=== PATIENT | female | born 1965 | race Caucasian/White ===

== ENCOUNTER 2019-04-18 12:48 | Inpatient (IN) | payer BC ==
[~2019-04-18] VITALS: Ht 170.2 cm; Wt 108.2 kg
[2019-04-18] MEDS ORDERED: MORPHINE SULFATE 10 MG/ML VIAL. IV ONE (13:00)
[2019-04-18] MEDS ORDERED: ONDANSETRON PF 4 MG/2 ML VIAL. IV ONE (13:00)
[2019-04-18] MEDS ORDERED: IV NORMAL SALINE 1000ML BAG 1,000 ML IV ONE ×3 (13:00→16:30)
--- NOTE | 2019-04-18 13:04 | PHYS DOC ---
Past Medical History Past Medical History: Hypertension, Hypothyroid Past Surgical History: No Surgical History Alcohol Use: Rarely Drug Use: None Adult General Chief Complaint Chief Complaint: ABDOMINAL PAIN HPI HPI Patient is a 53 year old female with history of hypertension, hypothyroidism, who presents to the ED today complaining of mild intermittent right lower quadrant abdominal pain that has been going on since yesterday. Patient denies anything specifically exacerbating or relieving the pain but states it's worse when she pushes on the right lower quadrant. Denies any nausea/ vomiting. She states she went to urgent care and assuming she has a UTI but she was sent to the ED for appendicitis rule out because of her symptoms. Review of Systems Review of Systems Constitutional: Denies fever or chills [] Eyes: Denies change in visual acuity, redness, or eye pain [] HENT: Denies nasal congestion or sore throat [] Respiratory: Denies cough or shortness of breath [] Cardiovascular: No additional information not addressed in HPI [] GI: Reports right low quadrant abdominal pain, denies nausea, vomiting, bloody stools or diarrhea [] : Denies dysuria or hematuria [] Musculoskeletal: Denies back pain or joint pain [] Integument: Denies rash or skin lesions [] Neurologic: Denies headache, focal weakness or sensory changes [] All other systems were reviewed and found to be within normal limits, except as documented in this note. Current Medications Current Medications Current Medications Medications (Trade) Dose Ordered Sig/Janina Start Time Stop Time Status Last Admin Dose Admin Ciprofloxacin/ Dextrose 200 ml @ 200 mls/hr 1X ONCE 04/18/19 16:30 04/18/19 17:29 UNV Info (CONTRAST GIVEN -- Rx MONITORING) 1 each PRN DAILY PRN 04/18/19 14:00 04/20/19 13:59 Iohexol (Omnipaque 350 Mg/ml) 60 ml 1X ONCE 04/18/19 14:00 04/18/19 14:01 DC 04/18/19 14:13 60 ML Metronidazole 100 ml @ 100 mls/hr Q8HRS 04/18/19 22:00 UNV Morphine Sulfate (Morphine Sulfate) 4 mg PRN Q2HR PRN 04/18/19 16:30 04/19/19 16:29 UNV Ondansetron HCl (Zofran) 4 mg PRN Q8HRS PRN 04/18/19 16:30 04/19/19 16:29 UNV Sodium Chloride 1,000 ml @ 125 mls/hr 1X ONCE 04/18/19 16:30 04/19/19 00:29 UNV Allergies Allergies Allergies Coded Allergies Type Severity Reaction Last Updated Verified Sulfa (Sulfonamide Antibiotics) Allergy Intermediate hives 07/25/14 Yes Physical Exam Physical Exam Constitutional: Well developed, well nourished, no acute distress, non-toxic appearance. [] HENT: Normocephalic, atraumatic, bilateral external ears normal, oropharynx moist, no oral exudates, nose normal. [] Eyes: PERRLA, EOMI, conjunctiva normal, no discharge. [] Neck: Normal range of motion, no tenderness, supple, no stridor. [] Cardiovascular:Heart rate regular rhythm, no murmur [] Lungs & Thorax: Bilateral breath sounds clear to auscultation [] Abdomen: Bowel sounds normal, soft, no left upper quadrant or right upper quadrant tenderness, negative Do sign, mild tenderness on palpation of the right lower quadrant with positive psoas sign, positive obturator sign, positive Rovsing sign, patient is guarding the right lower quadrant, no masses, no pulsatile masses. [] Skin: Warm, dry, no erythema, no rash. [] Back: No tenderness, no CVA tenderness. [] Extremities: No tenderness, no cyanosis, no clubbing, ROM intact, no edema. [] Neurologic: Alert and oriented X 3, normal motor function, normal sensory function, no focal deficits noted. [] Psychologic: Affect normal, judgement normal, mood normal. [] Current Patient Data Vital Signs Vital Signs Date Time Temp Pulse Resp B/P (MAP) Pulse Ox O2 Delivery O2 Flow Rate FiO2 04/18/19 13:45 16 04/18/19 12:50 99.2 79 175/82 (113) 99 Room Air 99.2 Lab Values Laboratory Tests Test 04/18/19 13:14 04/18/19 13:25 Urine Collection Type Unknown Urine Color Yellow Urine Clarity Clear Urine pH 7.0 Urine Specific [place] <=1.005 Urine Protein Negative mg/dL (NEG-TRACE) Urine Glucose (UA) Negative mg/dL (NEG) Urine Ketones (Stick) Negative mg/dL (NEG) Urine Blood Negative (NEG) Urine Nitrite Negative (NEG) Urine Bilirubin Negative (NEG) Urine Urobilinogen Dipstick 0.2 mg/dL (0.2 mg/dL) Urine Leukocyte Esterase Negative (NEG) Urine RBC 0 /HPF (0-2) Urine WBC 0 /HPF (0-4) Urine Squamous Epithelial Cells Few /LPF Urine Bacteria Few /HPF (0-FEW) Urine Opiates Screen Neg (NEG) Urine Methadone Screen Neg (NEG) Urine Barbiturates Neg (NEG) Urine Phencyclidine Screen Neg (NEG) Urine Amphetamine/Methamphetamine Neg (NEG) Urine Benzodiazepines Screen Neg (NEG) Urine Cocaine Screen Neg (NEG) Urine Cannabinoids Screen Neg (NEG) Urine Ethyl Alcohol Neg (NEG) White Blood Count 13.3 x10^3/uL (4.0-11.0) H Red Blood Count 4.53 x10^6/uL (3.50-5.40) Hemoglobin 13.9 g/dL (12.0-15.5) Hematocrit 41.4 % (36.0-47.0) Mean Corpuscular Volume 91 fL (79-100) Mean Corpuscular Hemoglobin 31 pg (25-35) Mean Corpuscular Hemoglobin Concent 34 g/dL (31-37) Red Cell Distribution Width 12.2 % (11.5-14.5) Platelet Count 198 x10^3/uL (140-400) Neutrophils (%) (Auto) 78 % (31-73) H Lymphocytes (%) (Auto) 16 % (24-48) L Monocytes (%) (Auto) 5 % (0-9) Eosinophils (%) (Auto) 1 % (0-3) Basophils (%) (Auto) 0 % (0-3) Neutrophils # (Auto) 10.3 x10^3uL (1.8-7.7) H Lymphocytes # (Auto) 2.1 x10^3/uL (1.0-4.8) Monocytes # (Auto) 0.7 x10^3/uL (0.0-1.1) Eosinophils # (Auto) 0.2 x10^3/uL (0.0-0.7) Basophils # (Auto) 0.0 x10^3/uL (0.0-0.2) Sodium Level 135 mmol/L (136-145) L Potassium Level 3.4 mmol/L (3.5-5.1) L Chloride Level 99 mmol/L (98-107) Carbon Dioxide Level 28 mmol/L (21-32) Anion Gap 8 (6-14) Blood Urea Nitrogen 14 mg/dL (7-20) Creatinine 1.0 mg/dL (0.6-1.0) Estimated GFR (Cockcroft-Gault) 58.2 BUN/Creatinine Ratio 14 (6-20) Glucose Level 99 mg/dL (70-99) Lactic Acid Level 0.6 mmol/L (0.4-2.0) Calcium Level 8.9 mg/dL (8.5-10.1) Total Bilirubin 1.8 mg/dL (0.2-1.0) H Aspartate Amino Transferase (AST) 15 U/L (15-37) Alanine Aminotransferase (ALT) 28 U/L (14-59) Alkaline Phosphatase 74 U/L (46-116) Total Protein 7.5 g/dL (6.4-8.2) Albumin 3.7 g/dL (3.4-5.0) Albumin/Globulin Ratio 1.0 (1.0-1.7) Lipase 82 U/L (73-393) Ethyl Alcohol Level < 10 mg/dL (0-10) Laboratory Tests 04/18/19 13:25 Laboratory Tests 04/18/19 13:25 EKG EKG [] Radiology/Procedures Radiology/Procedures []PROCEDURE: CT ABD PELV W/ IV CONTRST ONLY Examination: CT of the abdomen pelvis with IV contrast HISTORY: History of right lower quadrant abdominal pain COMPARISON: None available TECHNIQUE: Axial CT images of the abdomen pelvis were performed. Coronal and sagittal reformats are performed Exposure: One or more of the following individualized dose reduction techniques were utilized for this examination: 1. Automated exposure control 2. Adjustment of the mA and/or kV according to patient size 3. Use of iterative reconstruction technique FINDINGS: Minimal bibasilar lung atelectasis. No evidence of free air identified in the abdomen. Mild degree attenuation noted in the liver likely hepatic steatosis. The visualized spleen, adrenals grossly appears unremarkable. Gallbladder is mildly distended. The stomach is mildly distended. The visualized pancreas grossly appears unremarkable. The gallbladder is mildly distended. The small bowel is nondilated. The appendix measures 9 mm in transverse dimension however no obvious inflammatory fashioning identified about the appendix. Feces and gas noted in the colon. Sigmoid colon diverticulosis identified. There is mild fat stranding identified in the right pelvis region just superior and posterior to the urinary bladder with mild thickened appearance of the wall of the sigmoid colon distally could be diverticulitis. Urinary bladder is mildly distended. Lobulated appearance of the right kidney could be prior cortical scarring changes. No evidence of lytic bony destructive lesion. IMPRESSION: 1. Mild fat stranding identified in the right lower pelvis region about the distal sigmoid colon region with mild thickening of the wall of the sigmoid colon. Differential includes mild acute diverticulitis, underlying mucosal pathology such as neoplasm is not completely excluded. 2. The appendix measures 9 mm in transverse dimension which is mildly dilated however no obvious inflammatory fat stranding identified about the appendix. Correlate clinically. Electronically signed by: Luis Hanley MD (04/18/2019 2:28 PM) [facility] DICTATED and SIGNED BY: LUIS HANLEY MD DATE: 04/18/19 1428 Course & Med Decision Making Course & Med Decision Making Pertinent Labs and Imaging studies reviewed. (See chart for details) This is a 53-year-old female patient presenting to the ED today with right lower quadrant abdominal pain/appendicitis rule out. He has been CBC with a WBC of 13.4 and a left shift, CMP with bilirubin of 1.8. Lactic 0.6. Vitals on arrival to the ED temperature 99.2, heart rate 79, respirations 16, blood pressure 175/82, O2 sats 99% on room air. CT of the abdomen and pelvic was noted for possible diverticulitis and enlarged appendix no inflammation. Spoke to Dr. Herrmann who requested we admit patient under [facility] Spoke with Dr. Mazariegos who accepted patient for admission. Patient was started on Cipro and Flagyl as well as IV fluids. Dragon Disclaimer Dragon Disclaimer This electronic medical record was generated, in whole or in part, using a voice recognition dictation system. Departure Departure Impression: Primary Impression: Diverticulitis Additional Impression: Right lower quadrant pain Disposition: 09 ADMITTED INPATIENT Condition: STABLE Referrals: EARL LARIOS MD (PCP) Problem Qualifiers MEKHI VALLE APRN April 18, 2019 13:04
[2019-04-18 13:29] LABS: BILIRUBIN,URINE NEGATIVE (NEG); CLARITY,URINE CLEAR; COLOR,URINE YELLOW; NITRITE,URINE NEGATIVE (NEG); PROTEIN,URINE NEGATIVE (NEG-TRACE); UROBILINOGEN,URINE 0.2 mg/dL (0.2 mg/dL)
[2019-04-18 13:37] LABS: AMPHETAMINE/METHAMPHETAMINE NEG (NEG); BARBITURATES NEG (NEG); BENZODIAZEPINES NEG (NEG); CANNABINOIDS NEG (NEG); COCAINE NEG (NEG); METHADONE NEG (NEG); OPIATES NEG (NEG); PHENCYCLIDINE NEG (NEG)
[2019-04-18 13:43] LABS: BASO % 0 % (0-3); EOS # 0.2 x10^3/uL (0.0-0.7); EOS % 1 % (0-3); HEMATOCRIT 41.4 % (36.0-47.0); HEMOGLOBIN 13.9 g/dL (12.0-15.5); LYMPH # 2.1 x10^3/uL (1.0-4.8); LYMPH % 16 % (24-48); MEAN CORPUSCULAR HEMOGLOBIN 31 pg (25-35); MEAN CORPUSCULAR HGB CONC 34 g/dL (31-37); MEAN CORPUSCULAR VOLUME 91 fL (79-100); MONO # 0.7 x10^3/uL (0.0-1.1); MONO % 5 % (0-9); NEUT # 10.3 x10^3uL (1.8-7.7); NEUT % 78 % (31-73); PLATELET COUNT 198 x10^3/uL (140-400); RED BLOOD COUNT 4.53 x10^6/uL (3.50-5.40); RED CELL DISTRIBUTION WIDTH 12.2 % (11.5-14.5); WHITE BLOOD COUNT 13.3 x10^3/uL (4.0-11.0)
[2019-04-18 13:48] LABS: BACTERIA,URINE FEW /HPF (0-FEW); RBC,URINE 0 /HPF (0-2); SQUAMOUS EPITHELIAL CELL,UR FEW /LPF; WBC,URINE 0 /HPF (0-4)
[2019-04-18 13:49] LABS: CALCIUM 8.9 mg/dL (8.5-10.1); GFR 58.2; POTASSIUM 3.4 mmol/L (3.5-5.1)
[2019-04-18 13:55] LABS: ALBUMIN 3.7 g/dL (3.4-5.0); TOTAL BILIRUBIN 1.8 mg/dL (0.2-1.0); TOTAL PROTEIN 7.5 g/dL (6.4-8.2)
[2019-04-18] MEDS ORDERED: CONTRAST GIVEN. MC PRN (14:00)
[2019-04-18] MEDS ORDERED: IOHEXOL 350 MG/ML 100 ML VIAL. IV ONE (14:00)
--- NOTE | 2019-04-18 14:31 | RAD ---
Examination: CT of the abdomen pelvis with IV contrast HISTORY: History of right lower quadrant abdominal pain COMPARISON: None available TECHNIQUE: Axial CT images of the abdomen pelvis were performed. Coronal and sagittal reformats are performed Exposure: One or more of the following individualized dose reduction techniques were utilized for this examination: 1. Automated exposure control 2. Adjustment of the mA and/or kV according to patient size 3. Use of iterative reconstruction technique FINDINGS: Minimal bibasilar lung atelectasis. No evidence of free air identified in the abdomen. Mild degree attenuation noted in the liver likely hepatic steatosis. The visualized spleen, adrenals grossly appears unremarkable. Gallbladder is mildly distended. The stomach is mildly distended. The visualized pancreas grossly appears unremarkable. The gallbladder is mildly distended. The small bowel is nondilated. The appendix measures 9 mm in transverse dimension however no obvious inflammatory fashioning identified about the appendix. Feces and gas noted in the colon. Sigmoid colon diverticulosis identified. There is mild fat stranding identified in the right pelvis region just superior and posterior to the urinary bladder with mild thickened appearance of the wall of the sigmoid colon distally could be diverticulitis. Urinary bladder is mildly distended. Lobulated appearance of the right kidney could be prior cortical scarring changes. No evidence of lytic bony destructive lesion. IMPRESSION: 1. Mild fat stranding identified in the right lower pelvis region about the distal sigmoid colon region with mild thickening of the wall of the sigmoid colon. Differential includes mild acute diverticulitis, underlying mucosal pathology such as neoplasm is not completely excluded. 2. The appendix measures 9 mm in transverse dimension which is mildly dilated however no obvious inflammatory fat stranding identified about the appendix. Correlate clinically. Electronically signed by: Luis Hanley MD (04/18/2019 2:28 PM) [facility]
--- NOTE | 2019-04-18 16:24 | PDOC1 ---
History and Physical Date of Admission Date of Admission DATE: 04/18/19 TIME: 16:20 Identification/Chief Complaint Chief Complaint seen in er, presents to the ED today complaining of mild intermittent right lower quadrant abdominal pain that has been going on since yesterday. Patient denies anything specifically exacerbating or relieving the pain but states it's worse when she pushes on the right lower quadrant. Denies any nausea/ vomiting. She states she went to urgent care and assuming she has a UTI but she was sent to the ED for appendicitis ct suggests diverticulitis, possible enlarged appendix pain began yesterday morning Past Medical History Past Medical History Past Medical History Past Medical History Past Medical History: Hypertension, Hypothyroid Past Surgical History: No Surgical History Alcohol Use: Rarely Drug Use: None family hx obesity Past Surgical History Past Surgical History: Cholecystectomy Family History Family History: High Cholestrol, Hypertension Social History Smoke: No ALCOHOL: social Drugs: None Current Medications Current Medications Current Medications Sodium Chloride 1,000 ml @ 1,000 mls/hr 1X ONCE IV Last administered on 04/18/19at 13:43; Start 04/18/19 at 13:00; Stop 04/18/19 at 13:59; Status DC Morphine Sulfate (Morphine Sulfate) 5 mg 1X ONCE IV Last administered on 04/18/19at 13:45; Start 04/18/19 at 13:00; Stop 04/18/19 at 13:06; Status DC Ondansetron HCl (Zofran) 4 mg 1X ONCE IV Last administered on 04/18/19at 13:46; Start 04/18/19 at 13:00; Stop 04/18/19 at 13:06; Status DC Iohexol (Omnipaque 350 Mg/ml) 60 ml 1X ONCE IV Last administered on 04/18/19at 14:13; Start 04/18/19 at 14:00; Stop 04/18/19 at 14:01; Status DC Info (CONTRAST GIVEN -- Rx MONITORING) 1 each PRN DAILY PRN MC SEE COMMENTS; Start 04/18/19 at 14:00; Stop 04/20/19 at 13:59 Allergies Allergies: Coded Allergies: Sulfa (Sulfonamide Antibiotics) (Verified Allergy, Intermediate, hives, 07/25/14) ROS Review of System Review of Systems Review of Systems Constitutional: yesterday, fever or chills [] Eyes: Denies change in visual acuity, redness, or eye pain [] HENT: Denies nasal congestion or sore throat [] Respiratory: Denies cough or shortness of breath [] Cardiovascular: No additional information not addressed in HPI [] GI: Reports right low quadrant abdominal pain, denies nausea, vomiting, bloody stools or diarrhea [] : Denies dysuria or hematuria [] Musculoskeletal: Denies back pain or joint pain [] Integument: Denies rash or skin lesions [] Neurologic: Denies headache, focal weakness or sensory changes [] 14 pt systems were reviewed and found to be within normal limits, except as documented . Hematological and Lymphatic: No: Bleeding Problems, Blood Clots, Blood Transfusions, Brusing, Night Sweats, Pallor, Swollen Lymph Nodes, Other Respiratory: No: Cough, Hemoptysis, Orthopnea, Pleuritic Pain, Shortness of breath, SOB with excertion, Sputum Changes, Stridor, Tachypnea, Wheezing, Other Cardiovascular: No Chest Pain, No Palpitations, No Orthopnea, No Paroxysmal Noc. Dyspnea, No Edema, No Lt Headedness, No Other Musculoskeletal: No Gait Disturbance, No Joint Pain, No Joint Stiffness, No Joint Swelling, No Muscle Pain, No Muscular Weakness, No Pain In:, No Swelling In:, No Other Physical Exam Physical Exam Physical Exam Physical Exam Constitutional: Well developed, well nourished, mild acute distress, non-toxic appearance. [] HENT: Normocephalic, atraumatic, bilateral external ears normal, oropharynx moist, no oral exudates, nose normal. [] Eyes: PERRLA, EOMI, conjunctiva normal, no discharge. [] Neck: Normal range of motion, no tenderness, supple, no stridor. [] Cardiovascular:Heart rate regular rhythm, no murmur [] Lungs & Thorax: Bilateral breath sounds clear to auscultation [] Abdomen: Bowel sounds normal, soft, no left upper quadrant or right upper quadrant tenderness, negative Do sign, mild tenderness on palpation of the right lower quadrant with positive psoas sign, positive obturator sign, positive Rovsing sign, patient is guarding the right lower quadrant, no masses, no pul satile masses. [] Skin: Warm, dry, no erythema, no rash. [] Back: No tenderness, no CVA tenderness. [] Extremities: mild rlq tenderness, no cyanosis, no clubbing, ROM intact, no edema. [] Neurologic: Alert and oriented X 3, normal motor function, normal sensory function, no focal deficits noted. [] Psychologic: Affect normal, judgement normal, mood normal. [] General: Alert, Oriented X3, Cooperative, mild distress HEENT: EOMI, Mucous membr. moist/pink Lungs: Clear to auscultation, Normal air movement Heart: S1S2, RRR, no thrills, no murmurs Breasts: Not examined Abdomen: Normal bowel sounds, No masses Rectal Exam: not examined PELVIC: Examination not indicated Neuro: Normal speech, Strength at 5/5 X4 ext, Normal tone, Sensation intact, Cranial nerves 3-12 NL Psych/Mental Status: Mental status NL, Mood NL Vitals Vitals Vital Signs Date Time Temp Pulse Resp B/P (MAP) Pulse Ox O2 Delivery O2 Flow Rate FiO2 04/18/19 13:45 16 04/18/19 12:50 99.2 79 175/82 (113) 99 Room Air 99.2 Labs Labs Laboratory Tests Test 04/18/19 13:14 04/18/19 13:25 Urine Collection Type Unknown Urine Color Yellow Urine Clarity Clear Urine pH 7.0 Urine Specific [place] <=1.005 Urine Protein Negative mg/dL (NEG-TRACE) Urine Glucose (UA) Negative mg/dL (NEG) Urine Ketones (Stick) Negative mg/dL (NEG) Urine Blood Negative (NEG) Urine Nitrite Negative (NEG) Urine Bilirubin Negative (NEG) Urine Urobilinogen Dipstick 0.2 mg/dL (0.2 mg/dL) Urine Leukocyte Esterase Negative (NEG) Urine RBC 0 /HPF (0-2) Urine WBC 0 /HPF (0-4) Urine Squamous Epithelial Cells Few /LPF Urine Bacteria Few /HPF (0-FEW) Urine Opiates Screen Neg (NEG) Urine Methadone Screen Neg (NEG) Urine Barbiturates Neg (NEG) Urine Phencyclidine Screen Neg (NEG) Urine Amphetamine/Methamphetamine Neg (NEG) Urine Benzodiazepines Screen Neg (NEG) Urine Cocaine Screen Neg (NEG) Urine Cannabinoids Screen Neg (NEG) Urine Ethyl Alcohol Neg (NEG) White Blood Count 13.3 x10^3/uL (4.0-11.0) Red Blood Count 4.53 x10^6/uL (3.50-5.40) Hemoglobin 13.9 g/dL (12.0-15.5) Hematocrit 41.4 % (36.0-47.0) Mean Corpuscular Volume 91 fL (79-100) Mean Corpuscular Hemoglobin 31 pg (25-35) Mean Corpuscular Hemoglobin Concent 34 g/dL (31-37) Red Cell Distribution Width 12.2 % (11.5-14.5) Platelet Count 198 x10^3/uL (140-400) Neutrophils (%) (Auto) 78 % (31-73) Lymphocytes (%) (Auto) 16 % (24-48) Monocytes (%) (Auto) 5 % (0-9) Eosinophils (%) (Auto) 1 % (0-3) Basophils (%) (Auto) 0 % (0-3) Neutrophils # (Auto) 10.3 x10^3uL (1.8-7.7) Lymphocytes # (Auto) 2.1 x10^3/uL (1.0-4.8) Monocytes # (Auto) 0.7 x10^3/uL (0.0-1.1) Eosinophils # (Auto) 0.2 x10^3/uL (0.0-0.7) Basophils # (Auto) 0.0 x10^3/uL (0.0-0.2) Sodium Level 135 mmol/L (136-145) Potassium Level 3.4 mmol/L (3.5-5.1) Chloride Level 99 mmol/L (98-107) Carbon Dioxide Level 28 mmol/L (21-32) Anion Gap 8 (6-14) Blood Urea Nitrogen 14 mg/dL (7-20) Creatinine 1.0 mg/dL (0.6-1.0) Estimated GFR (Cockcroft-Gault) 58.2 BUN/Creatinine Ratio 14 (6-20) Glucose Level 99 mg/dL (70-99) Lactic Acid Level 0.6 mmol/L (0.4-2.0) Calcium Level 8.9 mg/dL (8.5-10.1) Total Bilirubin 1.8 mg/dL (0.2-1.0) Aspartate Amino Transf (AST/SGOT) 15 U/L (15-37) Alanine Aminotransferase (ALT/SGPT) 28 U/L (14-59) Alkaline Phosphatase 74 U/L (46-116) Total Protein 7.5 g/dL (6.4-8.2) Albumin 3.7 g/dL (3.4-5.0) Albumin/Globulin Ratio 1.0 (1.0-1.7) Lipase 82 U/L (73-393) Ethyl Alcohol Level < 10 mg/dL (0-10) Laboratory Tests Test 04/18/19 13:14 04/18/19 13:25 Urine Collection Type Unknown Urine Color Yellow Urine Clarity Clear Urine pH 7.0 Urine Specific [place] <=1.005 Urine Protein Negative mg/dL (NEG-TRACE) Urine Glucose (UA) Negative mg/dL (NEG) Urine Ketones (Stick) Negative mg/dL (NEG) Urine Blood Negative (NEG) Urine Nitrite Negative (NEG) Urine Bilirubin Negative (NEG) Urine Urobilinogen Dipstick 0.2 mg/dL (0.2 mg/dL) Urine Leukocyte Esterase Negative (NEG) Urine RBC 0 /HPF (0-2) Urine WBC 0 /HPF (0-4) Urine Squamous Epithelial Cells Few /LPF Urine Bacteria Few /HPF (0-FEW) Urine Opiates Screen Neg (NEG) Urine Methadone Screen Neg (NEG) Urine Barbiturates Neg (NEG) Urine Phencyclidine Screen Neg (NEG) Urine Amphetamine/Methamphetamine Neg (NEG) Urine Benzodiazepines Screen Neg (NEG) Urine Cocaine Screen Neg (NEG) Urine Cannabinoids Screen Neg (NEG) Urine Ethyl Alcohol Neg (NEG) White Blood Count 13.3 x10^3/uL (4.0-11.0) Red Blood Count 4.53 x10^6/uL (3.50-5.40) Hemoglobin 13.9 g/dL (12.0-15.5) Hematocrit 41.4 % (36.0-47.0) Mean Corpuscular Volume 91 fL (79-100) Mean Corpuscular Hemoglobin 31 pg (25-35) Mean Corpuscular Hemoglobin Concent 34 g/dL (31-37) Red Cell Distribution Width 12.2 % (11.5-14.5) Platelet Count 198 x10^3/uL (140-400) Neutrophils (%) (Auto) 78 % (31-73) Lymphocytes (%) (Auto) 16 % (24-48) Monocytes (%) (Auto) 5 % (0-9) Eosinophils (%) (Auto) 1 % (0-3) Basophils (%) (Auto) 0 % (0-3) Neutrophils # (Auto) 10.3 x10^3uL (1.8-7.7) Lymphocytes # (Auto) 2.1 x10^3/uL (1.0-4.8) Monocytes # (Auto) 0.7 x10^3/uL (0.0-1.1) Eosinophils # (Auto) 0.2 x10^3/uL (0.0-0.7) Basophils # (Auto) 0.0 x10^3/uL (0.0-0.2) Sodium Level 135 mmol/L (136-145) Potassium Level 3.4 mmol/L (3.5-5.1) Chloride Level 99 mmol/L (98-107) Carbon Dioxide Level 28 mmol/L (21-32) Anion Gap 8 (6-14) Blood Urea Nitrogen 14 mg/dL (7-20) Creatinine 1.0 mg/dL (0.6-1.0) Estimated GFR (Cockcroft-Gault) 58.2 BUN/Creatinine Ratio 14 (6-20) Glucose Level 99 mg/dL (70-99) Lactic Acid Level 0.6 mmol/L (0.4-2.0) Calcium Level 8.9 mg/dL (8.5-10.1) Total Bilirubin 1.8 mg/dL (0.2-1.0) Aspartate Amino Transf (AST/SGOT) 15 U/L (15-37) Alanine Aminotransferase (ALT/SGPT) 28 U/L (14-59) Alkaline Phosphatase 74 U/L (46-116) Total Protein 7.5 g/dL (6.4-8.2) Albumin 3.7 g/dL (3.4-5.0) Albumin/Globulin Ratio 1.0 (1.0-1.7) Lipase 82 U/L (73-393) Ethyl Alcohol Level < 10 mg/dL (0-10) Images Images COMPARISON: None available TECHNIQUE: Axial CT images of the abdomen pelvis were performed. Coronal and sagittal reformats are performed Exposure: One or more of the following individualized dose reduction techniques were utilized for this examination: 1. Automated exposure control 2. Adjustment of the mA and/or kV according to patient size 3. Use of iterative reconstruction technique FINDINGS: Minimal bibasilar lung atelectasis. No evidence of free air identified in the abdomen. Mild degree attenuation noted in the liver likely hepatic steatosis. The visualized spleen, adrenals grossly appears unremarkable. Gallbladder is mildly distended. The stomach is mildly distended. The visualized pancreas grossly appears unremarkable. The gallbladder is mildly distended. The small bowel is nondilated. The appendix measures 9 mm in transverse dimension however no obvious inflammatory fashioning identified about the appendix. Feces and gas noted in the colon. Sigmoid colon diverticulosis identified. There is mild fat stranding identified in the right pelvis region just superior and posterior to the urinary bladder with mild thickened appearance of the wall of the sigmoid colon distally could be diverticulitis. Urinary bladder is mildly distended. Lobulated appearance of the right kidney could be prior cortical scarring changes. No evidence of lytic bony destructive lesion. IMPRESSION: 1. Mild fat stranding identified in the right lower pelvis region about the distal sigmoid colon region with mild thickening of the wall of the sigmoid colon. Differential includes mild acute diverticulitis, underlying mucosal pathology such as neoplasm is not completely excluded. 2. The appendix measures 9 mm in transverse dimension which is mildly dilated however no obvious inflammatory fat stranding identified about the appendix. Correlate clinically. Electronically signed by: Luis Hanley MD (04/18/2019 2:28 PM) [facility] VTE Prophylaxis Ordered VTE Prophylaxis Devices: Yes VTE Pharmacological Prophylaxi: Yes Assessment/Plan Assessment/Plan IMPRESSION: 1. Mild fat stranding identified in the right lower pelvis region about the distal sigmoid colon region with mild thickening of the wall of the sigmoid colon. Differential includes mild acute diverticulitis, underlying mucosal pathology such as neoplasm is not completely excluded. 2. The appendix measures 9 mm in transverse dimension which is mildly dilated however no obvious inflammatory fat stranding identified about the appendix. Correlate clinically. 3.morbid obesity 4. random htn, monitor plan admit npo surgery consult serial exams dvt prophylaxis gi prophylaxis iv fluid support 125 CC /HR NS iv cipro, flagyl GI CONSULT may need out pt colonoscopy based on CT report ESR iv pain control JULIANA DAVIES MD April 18, 2019 16:24
[2019-04-18] MEDS ORDERED: PANTOPRAZOLE 40 MG TABLET.DR. PO SCH (16:30)
[2019-04-18] MEDS ORDERED: POTASSIUM CHLORIDE 20 MEQ TABLET.ER. PO ONE ×2 (16:30)
[2019-04-18] MEDS ORDERED: CIPROFLOXACIN 400MG PREMIX 200 ML IV ONE (16:30)
[2019-04-18] MEDS ORDERED: ONDANSETRON PF 4 MG/2 ML VIAL. IV PRN (16:30)
[2019-04-18 16:57] VITALS: BP 140/79
[2019-04-18] MEDS: MORPHINE SULFATE 4 MG/ML VIAL. IV PRN ×2 (17:25→21:27)
--- NOTE | 2019-04-18 18:27 | PDOC2 ---
CONSULT Date of Consult Date of Consult DATE: 04/18/19 TIME: 18:21 Reason for Consult Reason for Consult: RLQ pain Referring Physician Referring Physician: BOBO Identification/Chief Complaint Chief Complaint RLQ pain Source Source: Chart review, Patient History of Present Illness Reason for Visit: Vanessa is a 53 yo female who has had some RLQ pain in the past. This usually resolved with abx started for possible UTI. Her pain recurred today, she went to Urgent Care and from there to the ED here. A CT scan done here showed some sigmoid changes suggesting diverticulitis. A mildly dilated appendix is unaccompanied by any inflammatory changes Past Medical History Cardiovascular: No pertinent hx Pulmonary: No pertinent hx Renal/: UTI Past Surgical History Past Surgical History: Hysterectomy Family History Family History: High Cholestrol, Hypertension Social History No ALCOHOL: social Drugs: None Current Problem List Problem List Problems Medical Problems: (1) Diverticulitis Status: Acute (2) Right lower quadrant pain Status: Acute Current Medications Current Medications Current Medications Sodium Chloride 1,000 ml @ 1,000 mls/hr 1X ONCE IV Last administered on 04/18/19at 13:43; Start 04/18/19 at 13:00; Stop 04/18/19 at 13:59; Status DC Morphine Sulfate (Morphine Sulfate) 5 mg 1X ONCE IV Last administered on 04/18/19at 13:45; Start 04/18/19 at 13:00; Stop 04/18/19 at 13:06; Status DC Ondansetron HCl (Zofran) 4 mg 1X ONCE IV Last administered on 04/18/19at 13:46; Start 04/18/19 at 13:00; Stop 04/18/19 at 13:06; Status DC Iohexol (Omnipaque 350 Mg/ml) 60 ml 1X ONCE IV Last administered on 04/18/19at 14:13; Start 04/18/19 at 14:00; Stop 04/18/19 at 14:01; Status DC Info (CONTRAST GIVEN -- Rx MONITORING) 1 each PRN DAILY PRN MC SEE COMMENTS; Start 04/18/19 at 14:00; Stop 04/20/19 at 13:59 Ondansetron HCl (Zofran) 4 mg PRN Q8HRS PRN IV NAUSEA/VOMITING; Start 04/18/19 at 16:30; Stop 04/19/19 at 16:29 Morphine Sulfate (Morphine Sulfate) 4 mg PRN Q2HR PRN IV PAIN Last administered on 04/18/19at 17:25; Start 04/18/19 at 16:30; Stop 04/19/19 at 16:29 Sodium Chloride 1,000 ml @ 125 mls/hr 1X ONCE IV Last administered on 04/18/19at 17:25; Start 04/18/19 at 16:30; Stop 04/19/19 at 00:29 Ciprofloxacin/ Dextrose 200 ml @ 200 mls/hr 1X ONCE IV Last administered on 04/18/19at 18:10; Start 04/18/19 at 16:30; Stop 04/18/19 at 17:29; Status DC Metronidazole 100 ml @ 100 mls/hr Q8HRS IV ; Start 04/18/19 at 22:00 Metronidazole 100 ml @ 100 mls/hr ONCE ONCE IV Last administered on 04/18/19at 17:24; Start 04/18/19 at 16:30; Stop 04/18/19 at 17:29; Status DC Potassium Chloride (Klor-Con) 40 meq 1X ONCE PO ; Start 04/18/19 at 16:30; Stop 04/18/19 at 16:31; Status DC Potassium Chloride (Klor-Con) 20 meq 1X ONCE PO ; Start 04/18/19 at 16:30; Stop 04/18/19 at 16:31; Status UNV Enoxaparin Sodium (Lovenox 40mg Syringe) 40 mg QHS SQ ; Start 04/18/19 at 21:00 Pantoprazole Sodium (Protonix) 40 mg DAILYAC PO ; Start 04/18/19 at 16:30 Sodium Chloride 1,000 ml @ 125 mls/hr 1X ONCE IV ; Start 04/18/19 at 16:30; Stop 04/19/19 at 00:29 Allergies Allergies: Coded Allergies: Sulfa (Sulfonamide Antibiotics) (Verified Allergy, Intermediate, hives, 07/25/14) ROS Gastrointestinal: Yes Abdominal Pain Physical Exam General: Alert, Oriented X3, No acute distress HEENT: Atraumatic Lungs: Normal air movement Heart: Regular rate Abdomen: Soft, Other (some TTP in the lower abdomen, midline) Vitals VITALS Vital Signs Date Time Temp Pulse Resp B/P (MAP) Pulse Ox O2 Delivery O2 Flow Rate FiO2 04/18/19 17:25 Room Air 04/18/19 17:13 77 18 141/65 (90) 98 04/18/19 16:57 98.5 98.5 Labs Labs Laboratory Tests Test 04/18/19 13:14 04/18/19 13:25 Urine Collection Type Unknown Urine Color Yellow Urine Clarity Clear Urine pH 7.0 Urine Specific [place] <=1.005 Urine Protein Negative mg/dL (NEG-TRACE) Urine Glucose (UA) Negative mg/dL (NEG) Urine Ketones (Stick) Negative mg/dL (NEG) Urine Blood Negative (NEG) Urine Nitrite Negative (NEG) Urine Bilirubin Negative (NEG) Urine Urobilinogen Dipstick 0.2 mg/dL (0.2 mg/dL) Urine Leukocyte Esterase Negative (NEG) Urine RBC 0 /HPF (0-2) Urine WBC 0 /HPF (0-4) Urine Squamous Epithelial Cells Few /LPF Urine Bacteria Few /HPF (0-FEW) Urine Opiates Screen Neg (NEG) Urine Methadone Screen Neg (NEG) Urine Barbiturates Neg (NEG) Urine Phencyclidine Screen Neg (NEG) Urine Amphetamine/Methamphetamine Neg (NEG) Urine Benzodiazepines Screen Neg (NEG) Urine Cocaine Screen Neg (NEG) Urine Cannabinoids Screen Neg (NEG) Urine Ethyl Alcohol Neg (NEG) White Blood Count 13.3 x10^3/uL (4.0-11.0) Red Blood Count 4.53 x10^6/uL (3.50-5.40) Hemoglobin 13.9 g/dL (12.0-15.5) Hematocrit 41.4 % (36.0-47.0) Mean Corpuscular Volume 91 fL (79-100) Mean Corpuscular Hemoglobin 31 pg (25-35) Mean Corpuscular Hemoglobin Concent 34 g/dL (31-37) Red Cell Distribution Width 12.2 % (11.5-14.5) Platelet Count 198 x10^3/uL (140-400) Neutrophils (%) (Auto) 78 % (31-73) Lymphocytes (%) (Auto) 16 % (24-48) Monocytes (%) (Auto) 5 % (0-9) Eosinophils (%) (Auto) 1 % (0-3) Basophils (%) (Auto) 0 % (0-3) Neutrophils # (Auto) 10.3 x10^3uL (1.8-7.7) Lymphocytes # (Auto) 2.1 x10^3/uL (1.0-4.8) Monocytes # (Auto) 0.7 x10^3/uL (0.0-1.1) Eosinophils # (Auto) 0.2 x10^3/uL (0.0-0.7) Basophils # (Auto) 0.0 x10^3/uL (0.0-0.2) Erythrocyte Sedimentation Rate 30 (0-25) Sodium Level 135 mmol/L (136-145) Potassium Level 3.4 mmol/L (3.5-5.1) Chloride Level 99 mmol/L (98-107) Carbon Dioxide Level 28 mmol/L (21-32) Anion Gap 8 (6-14) Blood Urea Nitrogen 14 mg/dL (7-20) Creatinine 1.0 mg/dL (0.6-1.0) Estimated GFR (Cockcroft-Gault) 58.2 BUN/Creatinine Ratio 14 (6-20) Glucose Level 99 mg/dL (70-99) Lactic Acid Level 0.6 mmol/L (0.4-2.0) Calcium Level 8.9 mg/dL (8.5-10.1) Total Bilirubin 1.8 mg/dL (0.2-1.0) Aspartate Amino Transf (AST/SGOT) 15 U/L (15-37) Alanine Aminotransferase (ALT/SGPT) 28 U/L (14-59) Alkaline Phosphatase 74 U/L (46-116) Total Protein 7.5 g/dL (6.4-8.2) Albumin 3.7 g/dL (3.4-5.0) Albumin/Globulin Ratio 1.0 (1.0-1.7) Lipase 82 U/L (73-393) Ethyl Alcohol Level < 10 mg/dL (0-10) Laboratory Tests Test 04/18/19 13:14 04/18/19 13:25 Urine Collection Type Unknown Urine Color Yellow Urine Clarity Clear Urine pH 7.0 Urine Specific [place] <=1.005 Urine Protein Negative mg/dL (NEG-TRACE) Urine Glucose (UA) Negative mg/dL (NEG) Urine Ketones (Stick) Negative mg/dL (NEG) Urine Blood Negative (NEG) Urine Nitrite Negative (NEG) Urine Bilirubin Negative (NEG) Urine Urobilinogen Dipstick 0.2 mg/dL (0.2 mg/dL) Urine Leukocyte Esterase Negative (NEG) Urine RBC 0 /HPF (0-2) Urine WBC 0 /HPF (0-4) Urine Squamous Epithelial Cells Few /LPF Urine Bacteria Few /HPF (0-FEW) Urine Opiates Screen Neg (NEG) Urine Methadone Screen Neg (NEG) Urine Barbiturates Neg (NEG) Urine Phencyclidine Screen Neg (NEG) Urine Amphetamine/Methamphetamine Neg (NEG) Urine Benzodiazepines Screen Neg (NEG) Urine Cocaine Screen Neg (NEG) Urine Cannabinoids Screen Neg (NEG) Urine Ethyl Alcohol Neg (NEG) White Blood Count 13.3 x10^3/uL (4.0-11.0) Red Blood Count 4.53 x10^6/uL (3.50-5.40) Hemoglobin 13.9 g/dL (12.0-15.5) Hematocrit 41.4 % (36.0-47.0) Mean Corpuscular Volume 91 fL (79-100) Mean Corpuscular Hemoglobin 31 pg (25-35) Mean Corpuscular Hemoglobin Concent 34 g/dL (31-37) Red Cell Distribution Width 12.2 % (11.5-14.5) Platelet Count 198 x10^3/uL (140-400) Neutrophils (%) (Auto) 78 % (31-73) Lymphocytes (%) (Auto) 16 % (24-48) Monocytes (%) (Auto) 5 % (0-9) Eosinophils (%) (Auto) 1 % (0-3) Basophils (%) (Auto) 0 % (0-3) Neutrophils # (Auto) 10.3 x10^3uL (1.8-7.7) Lymphocytes # (Auto) 2.1 x10^3/uL (1.0-4.8) Monocytes # (Auto) 0.7 x10^3/uL (0.0-1.1) Eosinophils # (Auto) 0.2 x10^3/uL (0.0-0.7) Basophils # (Auto) 0.0 x10^3/uL (0.0-0.2) Erythrocyte Sedimentation Rate 30 (0-25) Sodium Level 135 mmol/L (136-145) Potassium Level 3.4 mmol/L (3.5-5.1) Chloride Level 99 mmol/L (98-107) Carbon Dioxide Level 28 mmol/L (21-32) Anion Gap 8 (6-14) Blood Urea Nitrogen 14 mg/dL (7-20) Creatinine 1.0 mg/dL (0.6-1.0) Estimated GFR (Cockcroft-Gault) 58.2 BUN/Creatinine Ratio 14 (6-20) Glucose Level 99 mg/dL (70-99) Lactic Acid Level 0.6 mmol/L (0.4-2.0) Calcium Level 8.9 mg/dL (8.5-10.1) Total Bilirubin 1.8 mg/dL (0.2-1.0) Aspartate Amino Transf (AST/SGOT) 15 U/L (15-37) Alanine Aminotransferase (ALT/SGPT) 28 U/L (14-59) Alkaline Phosphatase 74 U/L (46-116) Total Protein 7.5 g/dL (6.4-8.2) Albumin 3.7 g/dL (3.4-5.0) Albumin/Globulin Ratio 1.0 (1.0-1.7) Lipase 82 U/L (73-393) Ethyl Alcohol Level < 10 mg/dL (0-10) Images Images CT done earlier is reviewed Assessment/Plan Assessment/Plan abdominal pain sigmoid diverticulitis dilated, non inflamed appendix gut rest, IV fluids, Abx no acute surgical recommendations will follow Thanks for consult! KIRBY ANDRADE MD April 18, 2019 18:27
[2019-04-18 19:00] VITALS: BP 148/79
[2019-04-18] MEDS ORDERED: ESTR26GE TD (19:10)
[2019-04-18] MEDS ORDERED: AZEL23SP NS (19:10)
[2019-04-18] MEDS ORDERED: HYDR12.58 PO (19:10)
[2019-04-18] MEDS ORDERED: FLUT16SP NS (19:10)
[2019-04-18] MEDS ORDERED: LEVO100T PO (19:10)
[2019-04-18] MEDS ORDERED: MULT1TAB52 PO (19:10)
[2019-04-18] MEDS ORDERED: OMEP20TA63 PO (19:10)
[2019-04-18] MEDS ORDERED: ATOR20TA PO (19:10)
[2019-04-18] MEDS ORDERED: BUDE10.2 IH (19:10)
[2019-04-18] MEDS: ENOXAPARIN 40 MG/0.4 ML SYRINGE. SQ SCH (21:28)
[2019-04-18 23:00] VITALS: BP 110/57
[2019-04-19 04:00] VITALS: BP 120/60
[2019-04-19 06:14] LABS: BASO % 0 % (0-3); EOS # 0.1 x10^3/uL (0.0-0.7); EOS % 1 % (0-3); HEMATOCRIT 41.1 % (36.0-47.0); HEMOGLOBIN 13.6 g/dL (12.0-15.5); LYMPH # 1.3 x10^3/uL (1.0-4.8); LYMPH % 11 % (24-48); MEAN CORPUSCULAR HEMOGLOBIN 30 pg (25-35); MEAN CORPUSCULAR HGB CONC 33 g/dL (31-37); MEAN CORPUSCULAR VOLUME 92 fL (79-100); MONO # 0.6 x10^3/uL (0.0-1.1); MONO % 5 % (0-9); NEUT # 9.7 x10^3uL (1.8-7.7); NEUT % 83 % (31-73); PLATELET COUNT 188 x10^3/uL (140-400); RED BLOOD COUNT 4.45 x10^6/uL (3.50-5.40); RED CELL DISTRIBUTION WIDTH 12.3 % (11.5-14.5); WHITE BLOOD COUNT 11.7 x10^3/uL (4.0-11.0)
[2019-04-19 06:27] LABS: CALCIUM 8.5 mg/dL (8.5-10.1); GFR 58.2; POTASSIUM 3.5 mmol/L (3.5-5.1)
[2019-04-19 07:00] VITALS: BP 130/65
[2019-04-19] MEDS ORDERED: PANTOPRAZOLE IV PUSH 40 MG VIAL. IVP SCH (07:30)
--- NOTE | 2019-04-19 08:33 | PDOC ---
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 Surgery consulted. Feeling better with treatment for diverticulitis, notes she does not have heavy fiber in her diet, does eat a lot of strawberries. Vitals Vitals Vital Signs Date Time Temp Pulse Resp B/P (MAP) Pulse Ox O2 Delivery O2 Flow Rate FiO2 04/19/19 07:00 98.4 77 18 130/65 (86) 99 Room Air 98.4 Physical Exam General: Alert, Oriented X3, No acute distress Heart: Regular rate Abdomen: Soft, Other (some TTP in the lower abdomen, midline) Labs LABS Laboratory Tests Test 04/18/19 13:14 04/18/19 13:25 04/19/19 05:30 Urine Collection Type Unknown Urine Color Yellow Urine Clarity Clear Urine pH 7.0 Urine Specific [place] <=1.005 Urine Protein Negative mg/dL (NEG-TRACE) Urine Glucose (UA) Negative mg/dL (NEG) Urine Ketones (Stick) Negative mg/dL (NEG) Urine Blood Negative (NEG) Urine Nitrite Negative (NEG) Urine Bilirubin Negative (NEG) Urine Urobilinogen Dipstick 0.2 mg/dL (0.2 mg/dL) Urine Leukocyte Esterase Negative (NEG) Urine RBC 0 /HPF (0-2) Urine WBC 0 /HPF (0-4) Urine Squamous Epithelial Cells Few /LPF Urine Bacteria Few /HPF (0-FEW) Urine Opiates Screen Neg (NEG) Urine Methadone Screen Neg (NEG) Urine Barbiturates Neg (NEG) Urine Phencyclidine Screen Neg (NEG) Urine Amphetamine/Methamphetamine Neg (NEG) Urine Benzodiazepines Screen Neg (NEG) Urine Cocaine Screen Neg (NEG) Urine Cannabinoids Screen Neg (NEG) Urine Ethyl Alcohol Neg (NEG) White Blood Count 13.3 x10^3/uL (4.0-11.0) 11.7 x10^3/uL (4.0-11.0) Red Blood Count 4.53 x10^6/uL (3.50-5.40) 4.45 x10^6/uL (3.50-5.40) Hemoglobin 13.9 g/dL (12.0-15.5) 13.6 g/dL (12.0-15.5) Hematocrit 41.4 % (36.0-47.0) 41.1 % (36.0-47.0) Mean Corpuscular Volume 91 fL (79-100) 92 fL (79-100) Mean Corpuscular Hemoglobin 31 pg (25-35) 30 pg (25-35) Mean Corpuscular Hemoglobin Concent 34 g/dL (31-37) 33 g/dL (31-37) Red Cell Distribution Width 12.2 % (11.5-14.5) 12.3 % (11.5-14.5) Platelet Count 198 x10^3/uL (140-400) 188 x10^3/uL (140-400) Neutrophils (%) (Auto) 78 % (31-73) 83 % (31-73) Lymphocytes (%) (Auto) 16 % (24-48) 11 % (24-48) Monocytes (%) (Auto) 5 % (0-9) 5 % (0-9) Eosinophils (%) (Auto) 1 % (0-3) 1 % (0-3) Basophils (%) (Auto) 0 % (0-3) 0 % (0-3) Neutrophils # (Auto) 10.3 x10^3uL (1.8-7.7) 9.7 x10^3uL (1.8-7.7) Lymphocytes # (Auto) 2.1 x10^3/uL (1.0-4.8) 1.3 x10^3/uL (1.0-4.8) Monocytes # (Auto) 0.7 x10^3/uL (0.0-1.1) 0.6 x10^3/uL (0.0-1.1) Eosinophils # (Auto) 0.2 x10^3/uL (0.0-0.7) 0.1 x10^3/uL (0.0-0.7) Basophils # (Auto) 0.0 x10^3/uL (0.0-0.2) 0.0 x10^3/uL (0.0-0.2) Erythrocyte Sedimentation Rate 30 (0-25) Sodium Level 135 mmol/L (136-145) 139 mmol/L (136-145) Potassium Level 3.4 mmol/L (3.5-5.1) 3.5 mmol/L (3.5-5.1) Chloride Level 99 mmol/L (98-107) 104 mmol/L (98-107) Carbon Dioxide Level 28 mmol/L (21-32) 26 mmol/L (21-32) Anion Gap 8 (6-14) 9 (6-14) Blood Urea Nitrogen 14 mg/dL (7-20) 14 mg/dL (7-20) Creatinine 1.0 mg/dL (0.6-1.0) 1.0 mg/dL (0.6-1.0) Estimated GFR (Cockcroft-Gault) 58.2 58.2 BUN/Creatinine Ratio 14 (6-20) Glucose Level 99 mg/dL (70-99) 102 mg/dL (70-99) Lactic Acid Level 0.6 mmol/L (0.4-2.0) Calcium Level 8.9 mg/dL (8.5-10.1) 8.5 mg/dL (8.5-10.1) Total Bilirubin 1.8 mg/dL (0.2-1.0) Aspartate Amino Transf (AST/SGOT) 15 U/L (15-37) Alanine Aminotransferase (ALT/SGPT) 28 U/L (14-59) Alkaline Phosphatase 74 U/L (46-116) Total Protein 7.5 g/dL (6.4-8.2) Albumin 3.7 g/dL (3.4-5.0) Albumin/Globulin Ratio 1.0 (1.0-1.7) Lipase 82 U/L (73-393) Ethyl Alcohol Level < 10 mg/dL (0-10) Assessment and Plan Assessmemt and Plan Problems Medical Problems: (1) Diverticulitis Status: Acute (2) Right lower quadrant pain Status: Acute Comment Review of Relevant I have reviewed the following items meli (where applicable) has been applied. Labs Laboratory Tests Test 04/18/19 13:14 04/18/19 13:25 04/19/19 05:30 Urine Collection Type Unknown Urine Color Yellow Urine Clarity Clear Urine pH 7.0 Urine Specific [place] <=1.005 Urine Protein Negative mg/dL (NEG-TRACE) Urine Glucose (UA) Negative mg/dL (NEG) Urine Ketones (Stick) Negative mg/dL (NEG) Urine Blood Negative (NEG) Urine Nitrite Negative (NEG) Urine Bilirubin Negative (NEG) Urine Urobilinogen Dipstick 0.2 mg/dL (0.2 mg/dL) Urine Leukocyte Esterase Negative (NEG) Urine RBC 0 /HPF (0-2) Urine WBC 0 /HPF (0-4) Urine Squamous Epithelial Cells Few /LPF Urine Bacteria Few /HPF (0-FEW) Urine Opiates Screen Neg (NEG) Urine Methadone Screen Neg (NEG) Urine Barbiturates Neg (NEG) Urine Phencyclidine Screen Neg (NEG) Urine Amphetamine/Methamphetamine Neg (NEG) Urine Benzodiazepines Screen Neg (NEG) Urine Cocaine Screen Neg (NEG) Urine Cannabinoids Screen Neg (NEG) Urine Ethyl Alcohol Neg (NEG) White Blood Count 13.3 x10^3/uL (4.0-11.0) 11.7 x10^3/uL (4.0-11.0) Red Blood Count 4.53 x10^6/uL (3.50-5.40) 4.45 x10^6/uL (3.50-5.40) Hemoglobin 13.9 g/dL (12.0-15.5) 13.6 g/dL (12.0-15.5) Hematocrit 41.4 % (36.0-47.0) 41.1 % (36.0-47.0) Mean Corpuscular Volume 91 fL (79-100) 92 fL (79-100) Mean Corpuscular Hemoglobin 31 pg (25-35) 30 pg (25-35) Mean Corpuscular Hemoglobin Concent 34 g/dL (31-37) 33 g/dL (31-37) Red Cell Distribution Width 12.2 % (11.5-14.5) 12.3 % (11.5-14.5) Platelet Count 198 x10^3/uL (140-400) 188 x10^3/uL (140-400) Neutrophils (%) (Auto) 78 % (31-73) 83 % (31-73) Lymphocytes (%) (Auto) 16 % (24-48) 11 % (24-48) Monocytes (%) (Auto) 5 % (0-9) 5 % (0-9) Eosinophils (%) (Auto) 1 % (0-3) 1 % (0-3) Basophils (%) (Auto) 0 % (0-3) 0 % (0-3) Neutrophils # (Auto) 10.3 x10^3uL (1.8-7.7) 9.7 x10^3uL (1.8-7.7) Lymphocytes # (Auto) 2.1 x10^3/uL (1.0-4.8) 1.3 x10^3/uL (1.0-4.8) Monocytes # (Auto) 0.7 x10^3/uL (0.0-1.1) 0.6 x10^3/uL (0.0-1.1) Eosinophils # (Auto) 0.2 x10^3/uL (0.0-0.7) 0.1 x10^3/uL (0.0-0.7) Basophils # (Auto) 0.0 x10^3/uL (0.0-0.2) 0.0 x10^3/uL (0.0-0.2) Erythrocyte Sedimentation Rate 30 (0-25) Sodium Level 135 mmol/L (136-145) 139 mmol/L (136-145) Potassium Level 3.4 mmol/L (3.5-5.1) 3.5 mmol/L (3.5-5.1) Chloride Level 99 mmol/L (98-107) 104 mmol/L (98-107) Carbon Dioxide Level 28 mmol/L (21-32) 26 mmol/L (21-32) Anion Gap 8 (6-14) 9 (6-14) Blood Urea Nitrogen 14 mg/dL (7-20) 14 mg/dL (7-20) Creatinine 1.0 mg/dL (0.6-1.0) 1.0 mg/dL (0.6-1.0) Estimated GFR (Cockcroft-Gault) 58.2 58.2 BUN/Creatinine Ratio 14 (6-20) Glucose Level 99 mg/dL (70-99) 102 mg/dL (70-99) Lactic Acid Level 0.6 mmol/L (0.4-2.0) Calcium Level 8.9 mg/dL (8.5-10.1) 8.5 mg/dL (8.5-10.1) Total Bilirubin 1.8 mg/dL (0.2-1.0) Aspartate Amino Transf (AST/SGOT) 15 U/L (15-37) Alanine Aminotransferase (ALT/SGPT) 28 U/L (14-59) Alkaline Phosphatase 74 U/L (46-116) Total Protein 7.5 g/dL (6.4-8.2) Albumin 3.7 g/dL (3.4-5.0) Albumin/Globulin Ratio 1.0 (1.0-1.7) Lipase 82 U/L (73-393) Ethyl Alcohol Level < 10 mg/dL (0-10) Laboratory Tests Test 04/18/19 13:14 04/18/19 13:25 04/19/19 05:30 Urine Collection Type Unknown Urine Color Yellow Urine Clarity Clear Urine pH 7.0 Urine Specific [place] <=1.005 Urine Protein Negative mg/dL (NEG-TRACE) Urine Glucose (UA) Negative mg/dL (NEG) Urine Ketones (Stick) Negative mg/dL (NEG) Urine Blood Negative (NEG) Urine Nitrite Negative (NEG) Urine Bilirubin Negative (NEG) Urine Urobilinogen Dipstick 0.2 mg/dL (0.2 mg/dL) Urine Leukocyte Esterase Negative (NEG) Urine RBC 0 /HPF (0-2) Urine WBC 0 /HPF (0-4) Urine Squamous Epithelial Cells Few /LPF Urine Bacteria Few /HPF (0-FEW) Urine Opiates Screen Neg (NEG) Urine Methadone Screen Neg (NEG) Urine Barbiturates Neg (NEG) Urine Phencyclidine Screen Neg (NEG) Urine Amphetamine/Methamphetamine Neg (NEG) Urine Benzodiazepines Screen Neg (NEG) Urine Cocaine Screen Neg (NEG) Urine Cannabinoids Screen Neg (NEG) Urine Ethyl Alcohol Neg (NEG) White Blood Count 13.3 x10^3/uL (4.0-11.0) 11.7 x10^3/uL (4.0-11.0) Red Blood Count 4.53 x10^6/uL (3.50-5.40) 4.45 x10^6/uL (3.50-5.40) Hemoglobin 13.9 g/dL (12.0-15.5) 13.6 g/dL (12.0-15.5) Hematocrit 41.4 % (36.0-47.0) 41.1 % (36.0-47.0) Mean Corpuscular Volume 91 fL (79-100) 92 fL (79-100) Mean Corpuscular Hemoglobin 31 pg (25-35) 30 pg (25-35) Mean Corpuscular Hemoglobin Concent 34 g/dL (31-37) 33 g/dL (31-37) Red Cell Distribution Width 12.2 % (11.5-14.5) 12.3 % (11.5-14.5) Platelet Count 198 x10^3/uL (140-400) 188 x10^3/uL (140-400) Neutrophils (%) (Auto) 78 % (31-73) 83 % (31-73) Lymphocytes (%) (Auto) 16 % (24-48) 11 % (24-48) Monocytes (%) (Auto) 5 % (0-9) 5 % (0-9) Eosinophils (%) (Auto) 1 % (0-3) 1 % (0-3) Basophils (%) (Auto) 0 % (0-3) 0 % (0-3) Neutrophils # (Auto) 10.3 x10^3uL (1.8-7.7) 9.7 x10^3uL (1.8-7.7) Lymphocytes # (Auto) 2.1 x10^3/uL (1.0-4.8) 1.3 x10^3/uL (1.0-4.8) Monocytes # (Auto) 0.7 x10^3/uL (0.0-1.1) 0.6 x10^3/uL (0.0-1.1) Eosinophils # (Auto) 0.2 x10^3/uL (0.0-0.7) 0.1 x10^3/uL (0.0-0.7) Basophils # (Auto) 0.0 x10^3/uL (0.0-0.2) 0.0 x10^3/uL (0.0-0.2) Erythrocyte Sedimentation Rate 30 (0-25) Sodium Level 135 mmol/L (136-145) 139 mmol/L (136-145) Potassium Level 3.4 mmol/L (3.5-5.1) 3.5 mmol/L (3.5-5.1) Chloride Level 99 mmol/L (98-107) 104 mmol/L (98-107) Carbon Dioxide Level 28 mmol/L (21-32) 26 mmol/L (21-32) Anion Gap 8 (6-14) 9 (6-14) Blood Urea Nitrogen 14 mg/dL (7-20) 14 mg/dL (7-20) Creatinine 1.0 mg/dL (0.6-1.0) 1.0 mg/dL (0.6-1.0) Estimated GFR (Cockcroft-Gault) 58.2 58.2 BUN/Creatinine Ratio 14 (6-20) Glucose Level 99 mg/dL (70-99) 102 mg/dL (70-99) Lactic Acid Level 0.6 mmol/L (0.4-2.0) Calcium Level 8.9 mg/dL (8.5-10.1) 8.5 mg/dL (8.5-10.1) Total Bilirubin 1.8 mg/dL (0.2-1.0) Aspartate Amino Transf (AST/SGOT) 15 U/L (15-37) Alanine Aminotransferase (ALT/SGPT) 28 U/L (14-59) Alkaline Phosphatase 74 U/L (46-116) Total Protein 7.5 g/dL (6.4-8.2) Albumin 3.7 g/dL (3.4-5.0) Albumin/Globulin Ratio 1.0 (1.0-1.7) Lipase 82 U/L (73-393) Ethyl Alcohol Level < 10 mg/dL (0-10) Medications Current Medications Sodium Chloride 1,000 ml @ 1,000 mls/hr 1X ONCE IV Last administered on 04/18/19at 13:43; Start 04/18/19 at 13:00; Stop 04/18/19 at 13:59; Status DC Morphine Sulfate (Morphine Sulfate) 5 mg 1X ONCE IV Last administered on 04/18/19at 13:45; Start 04/18/19 at 13:00; Stop 04/18/19 at 13:06; Status DC Ondansetron HCl (Zofran) 4 mg 1X ONCE IV Last administered on 04/18/19at 13:46; Start 04/18/19 at 13:00; Stop 04/18/19 at 13:06; Status DC Iohexol (Omnipaque 350 Mg/ml) 60 ml 1X ONCE IV Last administered on 04/18/19at 14:13; Start 04/18/19 at 14:00; Stop 04/18/19 at 14:01; Status DC Info (CONTRAST GIVEN -- Rx MONITORING) 1 each PRN DAILY PRN MC SEE COMMENTS; Start 04/18/19 at 14:00; Stop 04/20/19 at 13:59 Ondansetron HCl (Zofran) 4 mg PRN Q8HRS PRN IV NAUSEA/VOMITING; Start 04/18/19 at 16:30; Stop 04/19/19 at 16:29 Morphine Sulfate (Morphine Sulfate) 4 mg PRN Q2HR PRN IV PAIN Last administered on 04/18/19at 21:27; Start 04/18/19 at 16:30; Stop 04/19/19 at 16:29 Sodium Chloride 1,000 ml @ 125 mls/hr 1X ONCE IV Last administered on 04/18/19at 17:25; Start 04/18/19 at 16:30; Stop 04/19/19 at 00:29; Status DC Ciprofloxacin/ Dextrose 200 ml @ 200 mls/hr 1X ONCE IV Last administered on 04/18/19at 18:10; Start 04/18/19 at 16:30; Stop 04/18/19 at 17:29; Status DC Metronidazole 100 ml @ 100 mls/hr Q8HRS IV Last administered on 04/19/19at 06:00; Start 04/18/19 at 22:00 Metronidazole 100 ml @ 100 mls/hr ONCE ONCE IV Last administered on 04/18/19at 17:24; Start 04/18/19 at 16:30; Stop 04/18/19 at 17:29; Status DC Potassium Chloride (Klor-Con) 40 meq 1X ONCE PO ; Start 04/18/19 at 16:30; Stop 04/18/19 at 16:31; Status DC Potassium Chloride (Klor-Con) 20 meq 1X ONCE PO ; Start 04/18/19 at 16:30; Stop 04/18/19 at 16:31; Status UNV Enoxaparin Sodium (Lovenox 40mg Syringe) 40 mg QHS SQ Last administered on 04/18/19at 21:28; Start 04/18/19 at 21:00 Pantoprazole Sodium (Protonix) 40 mg DAILYAC PO ; Start 04/18/19 at 16:30; Stop 04/19/19 at 07:17; Status DC Sodium Chloride 1,000 ml @ 125 mls/hr 1X ONCE IV Last administered on 04/18/19at 19:00; Start 04/18/19 at 16:30; Stop 04/19/19 at 00:29; Status DC Pantoprazole Sodium (PROTONIX VIAL for IV PUSH) 40 mg DAILYAC IVP ; Start 04/19/19 at 07:30; Status UNV Famotidine (Pepcid Vial) 20 mg BID IVP ; Start 04/19/19 at 09:00 Active Scripts Active Reported Lipitor (Atorvastatin Calcium) 20 Mg Tablet 1 Tab PO DAILY Multivitamins (Multivitamin) 1 Each Tablet 1 Tab PO DAILY Prilosec Otc (Omeprazole Magnesium) 20 Mg Tablet.dr 1 Tab PO DAILY Symbicort 160-4.5 Mcg Inhaler (Budesonide/Formoterol Fumarate) 10.2 Gm Hfa.aer.ad 2 Puff IH BID Dymista Nasal Romney (Azelastine/Fluticasone) 23 Gm Romney.pump 1 Romney NS DAILY Fluticasone Propionate Nasal Romney (Fluticasone Propionate) 16 Gm Romney.susp 2 Romney NS DAILY Elestrin (Estradiol) 26 Gm Gel.md.house servant 26 Gm TD DAILY Hydrochlorothiazide Tablet (Hydrochlorothiazide) 12.5 Mg Tablet 12.5 Mg PO DAILY Synthroid (Levothyroxine Sodium) 100 Mcg Tablet 1 Tab PO DAILY Vitals/I & O Vital Sign - Last 24 Hours 04/18/19 04/18/19 04/18/19 04/18/19 12:50 13:30 13:45 14:00 Temp 99.2 99.2 Pulse 79 73 72 Resp 16 16 B/P (MAP) 175/82 (113) 145/71 (95) 156/72 (100) Pulse Ox 99 98 O2 Delivery Room Air 04/18/19 04/18/19 04/18/19 04/18/19 14:30 16:57 16:57 17:13 Temp 98.5 98.5 98.5 98.5 Pulse 74 77 Resp 18 18 B/P (MAP) 145/76 (99) 140/79 (99) 140/ 141/65 (90) Pulse Ox 98 98 98 O2 Delivery Room Air Room Air Room Air 04/18/19 04/18/19 04/18/19 04/18/19 17:25 19:00 21:27 21:57 Temp 99.6 99.6 Pulse 83 Resp 20 20 B/P (MAP) 148/79 (102) Pulse Ox 97 O2 Delivery Room Air Room Air Room Air Room Air 04/18/19 04/19/19 04/19/19 23:00 04:00 07:00 Temp 99.9 101.7 98.4 99.9 101.7 98.4 Pulse 86 91 77 Resp 18 B/P (MAP) 110/57 (74) 120/60 (80) 130/65 (86) Pulse Ox 94 96 99 O2 Delivery Room Air Room Air Room Air Images CT abdomen - 1. Mild fat stranding identified in the right lower pelvis region about the distal sigmoid colon region with mild thickening of the wall of the sigmoid colon. Differential includes mild acute diverticulitis, underlying mucosal pathology such as neoplasm is not completely excluded. 2. The appendix measures 9 mm in transverse dimension which is mildly dilated however no obvious inflammatory fat stranding identified about the appendix. Correlate clinically. SHEEBA GARNER MD April 19, 2019 08:33
[2019-04-19] MEDS: FAMOTIDINE 20 MG/2 ML VIAL IVP SCH ×2 (08:48→20:55)
--- NOTE | 2019-04-19 09:17 | PDOC ---
SURGICAL PROGRESS NOTE Subjective pain about the same passing "a little" flatus Vital Signs Vital Signs Date Time Temp Pulse Resp B/P (MAP) Pulse Ox O2 Delivery O2 Flow Rate FiO2 04/19/19 07:00 98.4 77 18 130/65 (86) 99 Room Air 98.4 Tmax 101.4 PATIENT HAS A SNYDER: No General: Alert, No acute distress HEENT: Atraumatic Abdomen: Soft, Other (mildly TTP in the lower abdomen midline) Labs Laboratory Tests Test 04/18/19 13:14 04/18/19 13:25 04/19/19 05:30 Urine Collection Type Unknown Urine Color Yellow Urine Clarity Clear Urine pH 7.0 Urine Specific [place] <=1.005 Urine Protein Negative mg/dL (NEG-TRACE) Urine Glucose (UA) Negative mg/dL (NEG) Urine Ketones (Stick) Negative mg/dL (NEG) Urine Blood Negative (NEG) Urine Nitrite Negative (NEG) Urine Bilirubin Negative (NEG) Urine Urobilinogen Dipstick 0.2 mg/dL (0.2 mg/dL) Urine Leukocyte Esterase Negative (NEG) Urine RBC 0 /HPF (0-2) Urine WBC 0 /HPF (0-4) Urine Squamous Epithelial Cells Few /LPF Urine Bacteria Few /HPF (0-FEW) Urine Opiates Screen Neg (NEG) Urine Methadone Screen Neg (NEG) Urine Barbiturates Neg (NEG) Urine Phencyclidine Screen Neg (NEG) Urine Amphetamine/Methamphetamine Neg (NEG) Urine Benzodiazepines Screen Neg (NEG) Urine Cocaine Screen Neg (NEG) Urine Cannabinoids Screen Neg (NEG) Urine Ethyl Alcohol Neg (NEG) White Blood Count 13.3 x10^3/uL (4.0-11.0) 11.7 x10^3/uL (4.0-11.0) Red Blood Count 4.53 x10^6/uL (3.50-5.40) 4.45 x10^6/uL (3.50-5.40) Hemoglobin 13.9 g/dL (12.0-15.5) 13.6 g/dL (12.0-15.5) Hematocrit 41.4 % (36.0-47.0) 41.1 % (36.0-47.0) Mean Corpuscular Volume 91 fL (79-100) 92 fL (79-100) Mean Corpuscular Hemoglobin 31 pg (25-35) 30 pg (25-35) Mean Corpuscular Hemoglobin Concent 34 g/dL (31-37) 33 g/dL (31-37) Red Cell Distribution Width 12.2 % (11.5-14.5) 12.3 % (11.5-14.5) Platelet Count 198 x10^3/uL (140-400) 188 x10^3/uL (140-400) Neutrophils (%) (Auto) 78 % (31-73) 83 % (31-73) Lymphocytes (%) (Auto) 16 % (24-48) 11 % (24-48) Monocytes (%) (Auto) 5 % (0-9) 5 % (0-9) Eosinophils (%) (Auto) 1 % (0-3) 1 % (0-3) Basophils (%) (Auto) 0 % (0-3) 0 % (0-3) Neutrophils # (Auto) 10.3 x10^3uL (1.8-7.7) 9.7 x10^3uL (1.8-7.7) Lymphocytes # (Auto) 2.1 x10^3/uL (1.0-4.8) 1.3 x10^3/uL (1.0-4.8) Monocytes # (Auto) 0.7 x10^3/uL (0.0-1.1) 0.6 x10^3/uL (0.0-1.1) Eosinophils # (Auto) 0.2 x10^3/uL (0.0-0.7) 0.1 x10^3/uL (0.0-0.7) Basophils # (Auto) 0.0 x10^3/uL (0.0-0.2) 0.0 x10^3/uL (0.0-0.2) Erythrocyte Sedimentation Rate 30 (0-25) Sodium Level 135 mmol/L (136-145) 139 mmol/L (136-145) Potassium Level 3.4 mmol/L (3.5-5.1) 3.5 mmol/L (3.5-5.1) Chloride Level 99 mmol/L (98-107) 104 mmol/L (98-107) Carbon Dioxide Level 28 mmol/L (21-32) 26 mmol/L (21-32) Anion Gap 8 (6-14) 9 (6-14) Blood Urea Nitrogen 14 mg/dL (7-20) 14 mg/dL (7-20) Creatinine 1.0 mg/dL (0.6-1.0) 1.0 mg/dL (0.6-1.0) Estimated GFR (Cockcroft-Gault) 58.2 58.2 BUN/Creatinine Ratio 14 (6-20) Glucose Level 99 mg/dL (70-99) 102 mg/dL (70-99) Lactic Acid Level 0.6 mmol/L (0.4-2.0) Calcium Level 8.9 mg/dL (8.5-10.1) 8.5 mg/dL (8.5-10.1) Total Bilirubin 1.8 mg/dL (0.2-1.0) Aspartate Amino Transf (AST/SGOT) 15 U/L (15-37) Alanine Aminotransferase (ALT/SGPT) 28 U/L (14-59) Alkaline Phosphatase 74 U/L (46-116) Total Protein 7.5 g/dL (6.4-8.2) Albumin 3.7 g/dL (3.4-5.0) Albumin/Globulin Ratio 1.0 (1.0-1.7) Lipase 82 U/L (73-393) Ethyl Alcohol Level < 10 mg/dL (0-10) Laboratory Tests Test 04/18/19 13:14 04/18/19 13:25 04/19/19 05:30 Urine Collection Type Unknown Urine Color Yellow Urine Clarity Clear Urine pH 7.0 Urine Specific Atkins <=1.005 Urine Protein Negative mg/dL (NEG-TRACE) Urine Glucose (UA) Negative mg/dL (NEG) Urine Ketones (Stick) Negative mg/dL (NEG) Urine Blood Negative (NEG) Urine Nitrite Negative (NEG) Urine Bilirubin Negative (NEG) Urine Urobilinogen Dipstick 0.2 mg/dL (0.2 mg/dL) Urine Leukocyte Esterase Negative (NEG) Urine RBC 0 /HPF (0-2) Urine WBC 0 /HPF (0-4) Urine Squamous Epithelial Cells Few /LPF Urine Bacteria Few /HPF (0-FEW) Urine Opiates Screen Neg (NEG) Urine Methadone Screen Neg (NEG) Urine Barbiturates Neg (NEG) Urine Phencyclidine Screen Neg (NEG) Urine Amphetamine/Methamphetamine Neg (NEG) Urine Benzodiazepines Screen Neg (NEG) Urine Cocaine Screen Neg (NEG) Urine Cannabinoids Screen Neg (NEG) Urine Ethyl Alcohol Neg (NEG) White Blood Count 13.3 x10^3/uL (4.0-11.0) 11.7 x10^3/uL (4.0-11.0) Red Blood Count 4.53 x10^6/uL (3.50-5.40) 4.45 x10^6/uL (3.50-5.40) Hemoglobin 13.9 g/dL (12.0-15.5) 13.6 g/dL (12.0-15.5) Hematocrit 41.4 % (36.0-47.0) 41.1 % (36.0-47.0) Mean Corpuscular Volume 91 fL (79-100) 92 fL (79-100) Mean Corpuscular Hemoglobin 31 pg (25-35) 30 pg (25-35) Mean Corpuscular Hemoglobin Concent 34 g/dL (31-37) 33 g/dL (31-37) Red Cell Distribution Width 12.2 % (11.5-14.5) 12.3 % (11.5-14.5) Platelet Count 198 x10^3/uL (140-400) 188 x10^3/uL (140-400) Neutrophils (%) (Auto) 78 % (31-73) 83 % (31-73) Lymphocytes (%) (Auto) 16 % (24-48) 11 % (24-48) Monocytes (%) (Auto) 5 % (0-9) 5 % (0-9) Eosinophils (%) (Auto) 1 % (0-3) 1 % (0-3) Basophils (%) (Auto) 0 % (0-3) 0 % (0-3) Neutrophils # (Auto) 10.3 x10^3uL (1.8-7.7) 9.7 x10^3uL (1.8-7.7) Lymphocytes # (Auto) 2.1 x10^3/uL (1.0-4.8) 1.3 x10^3/uL (1.0-4.8) Monocytes # (Auto) 0.7 x10^3/uL (0.0-1.1) 0.6 x10^3/uL (0.0-1.1) Eosinophils # (Auto) 0.2 x10^3/uL (0.0-0.7) 0.1 x10^3/uL (0.0-0.7) Basophils # (Auto) 0.0 x10^3/uL (0.0-0.2) 0.0 x10^3/uL (0.0-0.2) Erythrocyte Sedimentation Rate 30 (0-25) Sodium Level 135 mmol/L (136-145) 139 mmol/L (136-145) Potassium Level 3.4 mmol/L (3.5-5.1) 3.5 mmol/L (3.5-5.1) Chloride Level 99 mmol/L (98-107) 104 mmol/L (98-107) Carbon Dioxide Level 28 mmol/L (21-32) 26 mmol/L (21-32) Anion Gap 8 (6-14) 9 (6-14) Blood Urea Nitrogen 14 mg/dL (7-20) 14 mg/dL (7-20) Creatinine 1.0 mg/dL (0.6-1.0) 1.0 mg/dL (0.6-1.0) Estimated GFR (Cockcroft-Gault) 58.2 58.2 BUN/Creatinine Ratio 14 (6-20) Glucose Level 99 mg/dL (70-99) 102 mg/dL (70-99) Lactic Acid Level 0.6 mmol/L (0.4-2.0) Calcium Level 8.9 mg/dL (8.5-10.1) 8.5 mg/dL (8.5-10.1) Total Bilirubin 1.8 mg/dL (0.2-1.0) Aspartate Amino Transf (AST/SGOT) 15 U/L (15-37) Alanine Aminotransferase (ALT/SGPT) 28 U/L (14-59) Alkaline Phosphatase 74 U/L (46-116) Total Protein 7.5 g/dL (6.4-8.2) Albumin 3.7 g/dL (3.4-5.0) Albumin/Globulin Ratio 1.0 (1.0-1.7) Lipase 82 U/L (73393) Ethyl Alcohol Level < 10 mg/dL (0-10) WBC coming down Problem List Problems Medical Problems: (1) Diverticulitis Status: Acute (2) Right lower quadrant pain Status: Acute Assessment/Plan sigmoid diverticulitis dilated uninflamed appendix clears continue x KIRBY ANDRADE MD April 19, 2019 09:17
[2019-04-19] MEDS: MORPHINE SULFATE 4 MG/ML VIAL. IV PRN (10:13)
[2019-04-19 11:00] VITALS: BP 125/70
--- NOTE | 2019-04-19 12:25 | PDOC2 ---
GI CONSULT Reason For Consult: Abdominal pain/abnormal CT HPI: HPI: 54 y/o female with 2-day h/o right near-pelvic pain. Some narrowing of stools, but not diarrhea or constipation. Some fever today. Had CT at presentation showing probable diverticulitis in distal sigmoid (lives in location of pain) and abnormal, but not inflamed appendix. Typically w/o LGI complaints. No chronic issues with diarrhea or constipation. Screening colonoscopy (me) July 2018 with diverticulosis and one small adenoma. GIFH positive for CRC in father, otherwise negative. Wt/appetite OK. No N, V. Long h/o heartburn, taking PPI daily. No dysphagia. No prior EGD (though mentioned to her at time of colonoscopy). No PUD, GB, liver or pancreatic history. No tobacco use. Occasional alcohol. PMH: PMH: OA, Asthma, HTN, HLP, hypothyroidism. S/p hysterectomy. FH: Family History: DM, Hypertension Social History: Smoke: No ALCOHOL: social Drugs: None ROS: GEN: Denies chills, sweats HEENT: Denies blurred vision, sore throat CV: Denies chest pain RESP: Denies shortness of air, cough GI: Per HPI : Denies hematuria, dysuria ENDO: Denies weight changes NEURO: Denies confusion, dizziness MSK: Denies weakness, joint pain/swelling SKIN: Denies jaundice, pruritus Vitals: Vitals: Vital Signs Date Time Temp Pulse Resp B/P (MAP) Pulse Ox O2 Delivery O2 Flow Rate FiO2 04/19/19 11:01 Room Air 04/19/19 11:00 99.1 80 18 125/70 (88) 98 99.1 Labs: Labs: Laboratory Tests Test 04/18/19 13:14 04/18/19 13:25 04/19/19 05:30 Urine Collection Type Unknown Urine Color Yellow Urine Clarity Clear Urine pH 7.0 Urine Specific [place] <=1.005 Urine Protein Negative mg/dL (NEG-TRACE) Urine Glucose (UA) Negative mg/dL (NEG) Urine Ketones (Stick) Negative mg/dL (NEG) Urine Blood Negative (NEG) Urine Nitrite Negative (NEG) Urine Bilirubin Negative (NEG) Urine Urobilinogen Dipstick 0.2 mg/dL (0.2 mg/dL) Urine Leukocyte Esterase Negative (NEG) Urine RBC 0 /HPF (0-2) Urine WBC 0 /HPF (0-4) Urine Squamous Epithelial Cells Few /LPF Urine Bacteria Few /HPF (0-FEW) Urine Opiates Screen Neg (NEG) Urine Methadone Screen Neg (NEG) Urine Barbiturates Neg (NEG) Urine Phencyclidine Screen Neg (NEG) Urine Amphetamine/Methamphetamine Neg (NEG) Urine Benzodiazepines Screen Neg (NEG) Urine Cocaine Screen Neg (NEG) Urine Cannabinoids Screen Neg (NEG) Urine Ethyl Alcohol Neg (NEG) White Blood Count 13.3 x10^3/uL (4.0-11.0) 11.7 x10^3/uL (4.0-11.0) Red Blood Count 4.53 x10^6/uL (3.50-5.40) 4.45 x10^6/uL (3.50-5.40) Hemoglobin 13.9 g/dL (12.0-15.5) 13.6 g/dL (12.0-15.5) Hematocrit 41.4 % (36.0-47.0) 41.1 % (36.0-47.0) Mean Corpuscular Volume 91 fL (79-100) 92 fL (79-100) Mean Corpuscular Hemoglobin 31 pg (25-35) 30 pg (25-35) Mean Corpuscular Hemoglobin Concent 34 g/dL (31-37) 33 g/dL (31-37) Red Cell Distribution Width 12.2 % (11.5-14.5) 12.3 % (11.5-14.5) Platelet Count 198 x10^3/uL (140-400) 188 x10^3/uL (140-400) Neutrophils (%) (Auto) 78 % (31-73) 83 % (31-73) Lymphocytes (%) (Auto) 16 % (24-48) 11 % (24-48) Monocytes (%) (Auto) 5 % (0-9) 5 % (0-9) Eosinophils (%) (Auto) 1 % (0-3) 1 % (0-3) Basophils (%) (Auto) 0 % (0-3) 0 % (0-3) Neutrophils # (Auto) 10.3 x10^3uL (1.8-7.7) 9.7 x10^3uL (1.8-7.7) Lymphocytes # (Auto) 2.1 x10^3/uL (1.0-4.8) 1.3 x10^3/uL (1.0-4.8) Monocytes # (Auto) 0.7 x10^3/uL (0.0-1.1) 0.6 x10^3/uL (0.0-1.1) Eosinophils # (Auto) 0.2 x10^3/uL (0.0-0.7) 0.1 x10^3/uL (0.0-0.7) Basophils # (Auto) 0.0 x10^3/uL (0.0-0.2) 0.0 x10^3/uL (0.0-0.2) Erythrocyte Sedimentation Rate 30 (0-25) Sodium Level 135 mmol/L (136-145) 139 mmol/L (136-145) Potassium Level 3.4 mmol/L (3.5-5.1) 3.5 mmol/L (3.5-5.1) Chloride Level 99 mmol/L (98-107) 104 mmol/L (98-107) Carbon Dioxide Level 28 mmol/L (21-32) 26 mmol/L (21-32) Anion Gap 8 (6-14) 9 (6-14) Blood Urea Nitrogen 14 mg/dL (7-20) 14 mg/dL (7-20) Creatinine 1.0 mg/dL (0.6-1.0) 1.0 mg/dL (0.6-1.0) Estimated GFR (Cockcroft-Gault) 58.2 58.2 BUN/Creatinine Ratio 14 (6-20) Glucose Level 99 mg/dL (70-99) 102 mg/dL (70-99) Lactic Acid Level 0.6 mmol/L (0.4-2.0) Calcium Level 8.9 mg/dL (8.5-10.1) 8.5 mg/dL (8.5-10.1) Total Bilirubin 1.8 mg/dL (0.2-1.0) Aspartate Amino Transf (AST/SGOT) 15 U/L (15-37) Alanine Aminotransferase (ALT/SGPT) 28 U/L (14-59) Alkaline Phosphatase 74 U/L (46-116) Total Protein 7.5 g/dL (6.4-8.2) Albumin 3.7 g/dL (3.4-5.0) Albumin/Globulin Ratio 1.0 (1.0-1.7) Lipase 82 U/L (73-393) Ethyl Alcohol Level < 10 mg/dL (0-10) Allergies: Coded Allergies: Sulfa (Sulfonamide Antibiotics) (Verified Allergy, Intermediate, hives, 07/25/14) Medications: Current Medications Medications (Trade) Dose Ordered Sig/Janina Route PRN Reason Start Time Stop Time Status Last Admin Dose Admin Sodium Chloride 1,000 ml @ 1,000 mls/hr 1X ONCE IV 04/18/19 13:00 04/18/19 13:59 DC 04/18/19 13:43 Morphine Sulfate (Morphine Sulfate) 5 mg 1X ONCE IV 04/18/19 13:00 04/18/19 13:06 DC 04/18/19 13:45 Ondansetron HCl (Zofran) 4 mg 1X ONCE IV 04/18/19 13:00 04/18/19 13:06 DC 04/18/19 13:46 Iohexol (Omnipaque 350 Mg/ml) 60 ml 1X ONCE IV 04/18/19 14:00 04/18/19 14:01 DC 04/18/19 14:13 Ondansetron HCl (Zofran) 4 mg PRN Q8HRS PRN IV NAUSEA/VOMITING 04/18/19 16:30 04/19/19 16:29 04/19/19 10:13 Morphine Sulfate (Morphine Sulfate) 4 mg PRN Q2HR PRN IV PAIN 04/18/19 16:30 04/19/19 16:29 04/19/19 10:13 Sodium Chloride 1,000 ml @ 125 mls/hr 1X ONCE IV 04/18/19 16:30 04/19/19 00:29 DC 04/18/19 17:25 Ciprofloxacin/ Dextrose 200 ml @ 200 mls/hr 1X ONCE IV 04/18/19 16:30 04/18/19 17:29 DC 04/18/19 18:10 Metronidazole 100 ml @ 100 mls/hr Q8HRS IV 04/18/19 22:00 04/19/19 06:00 Metronidazole 100 ml @ 100 mls/hr ONCE ONCE IV 04/18/19 16:30 04/18/19 17:29 DC 04/18/19 17:24 Enoxaparin Sodium (Lovenox 40mg Syringe) 40 mg QHS SQ 04/18/19 21:00 04/18/19 21:28 Sodium Chloride 1,000 ml @ 125 mls/hr 1X ONCE IV 04/18/19 16:30 04/19/19 00:29 DC 04/18/19 19:00 Famotidine (Pepcid Vial) 20 mg BID IVP 04/19/19 09:00 04/19/19 08:48 Imaging: Imaging: CT reviewed. PE: GEN: NAD HEENT: Atraumatic, PERRLA LUNGS: CTAB HEART: RRR, no murmurs ABD: NABS, S/ND, no masses, tender right suprapubic EXTREMITY: No edema SKIN: No rashes, no jaundice NEURO/PSYCH: A & O 3 A/P: A/P: IMP: Diverticulitis; somewhat atypical pain location as quite low in sigmoid. Abnormal appendix on CT; doubt significant. Chronic heartburn. FH colon cancer/history of adenoma on recent colonoscopy. REC: Clears OK for not. PPI po if not on. Continue antibiotics; po as able. Should consider EGD at some point; discussed. If clinically worsens, repeat CT. --other pending. Thank you for allowing me to assist in the care of this patient. Please call if questions. BRI WINTERS MD April 19, 2019 12:25
[2019-04-19 15:00] VITALS: BP 139/76
[2019-04-19] MEDS ORDERED: CETI10TA16 PO (15:46)
[2019-04-19] MEDS: CETIRIZINE HCL 10 MG TABLET. PO SCH (16:07)
[2019-04-19 19:34] VITALS: BP 152/89
[2019-04-19] MEDS: ALBUTEROL SULFATE 2.5 MG/3 ML NEBU. NEB SCH (19:36)
[2019-04-19] MEDS: BUDESONIDE 0.5 MG/2 ML NEBU. NEB SCH (19:36)
[2019-04-19] MEDS: CIPROFLOXACIN HCL 250 MG TABLET. PO SCH (20:54)
[2019-04-19] MEDS ORDERED: ATORVASTATIN CALCIUM 20 MG TABLET PO SCH (21:00)
[2019-04-19] MEDS: ENOXAPARIN 40 MG/0.4 ML SYRINGE. SQ SCH (21:00)
[2019-04-19 23:10] VITALS: BP 126/71
[2019-04-20 03:39] VITALS: BP 131/69
[2019-04-20 07:00] VITALS: BP 136/78
[2019-04-20 07:18] LABS: BASO % 0 % (0-3); EOS # 0.2 x10^3/uL (0.0-0.7); EOS % 2 % (0-3); HEMATOCRIT 39.5 % (36.0-47.0); HEMOGLOBIN 13.4 g/dL (12.0-15.5); LYMPH # 1.5 x10^3/uL (1.0-4.8); LYMPH % 14 % (24-48); MEAN CORPUSCULAR HEMOGLOBIN 32 pg (25-35); MEAN CORPUSCULAR HGB CONC 34 g/dL (31-37); MEAN CORPUSCULAR VOLUME 93 fL (79-100); MONO # 0.7 x10^3/uL (0.0-1.1); MONO % 7 % (0-9); NEUT # 8.8 x10^3uL (1.8-7.7); NEUT % 78 % (31-73); PLATELET COUNT 195 x10^3/uL (140-400); RED BLOOD COUNT 4.27 x10^6/uL (3.50-5.40); RED CELL DISTRIBUTION WIDTH 12.2 % (11.5-14.5); WHITE BLOOD COUNT 11.3 x10^3/uL (4.0-11.0)
[2019-04-20] MEDS: BUDESONIDE 0.5 MG/2 ML NEBU. NEB SCH (07:19)
[2019-04-20] MEDS: ALBUTEROL SULFATE 2.5 MG/3 ML NEBU. NEB SCH ×2 (07:19→11:08)
[2019-04-20] MEDS ORDERED: LEVOTHYROXINE 100 MCG TABLET PO SCH ×2 (07:20→09:00)
[2019-04-20] MEDS ORDERED: PANTOPRAZOLE 40 MG TABLET.DR. PO SCH (07:30)
[2019-04-20] MEDS ORDERED: FLUTICASONE 50MCG/NASAL SPRAY 16GM BOTTLE. NS SCH ×2 (09:00)
[2019-04-20] MEDS ORDERED: metroNIDAZOLE 500 MG TABLET PO SCH (09:00)
[2019-04-20] MEDS ORDERED: MULTIVITAMIN with MINERAL TABLET. PO SCH (09:00)
[2019-04-20] MEDS ORDERED: hydroCHLOROthiazide 12.5 MG CAPSULE PO SCH (09:00)
--- NOTE | 2019-04-20 09:47 | PDOC ---
BRENDA HAYES THERMODYNAMIC PHYSICIST 04/20/19 0947: SURGICAL PROGRESS NOTE Subjective feeling much better very little pain no nausea Vital Signs Vital Signs Date Time Temp Pulse Resp B/P (MAP) Pulse Ox O2 Delivery O2 Flow Rate FiO2 04/20/19 07:00 98.2 68 17 136/78 (97) 97 Room Air 98.2 I&O Intake and Output 04/20/19 07:00 Intake Total 920 ml Output Total 500 ml Balance 420 ml Intake Oral 920 ml Output Urine Total 500 ml # Voids 3 General: Alert, Oriented X3, Cooperative, No acute distress Abdomen: Soft, Other (mild lower pain) Labs Laboratory Tests Test 04/18/19 13:14 04/18/19 13:25 04/19/19 05:30 04/20/19 05:15 Urine Collection Type Unknown Urine Color Yellow Urine Clarity Clear Urine pH 7.0 Urine Specific [place] <=1.005 Urine Protein Negative mg/dL (NEG-TRACE) Urine Glucose (UA) Negative mg/dL (NEG) Urine Ketones (Stick) Negative mg/dL (NEG) Urine Blood Negative (NEG) Urine Nitrite Negative (NEG) Urine Bilirubin Negative (NEG) Urine Urobilinogen Dipstick 0.2 mg/dL (0.2 mg/dL) Urine Leukocyte Esterase Negative (NEG) Urine RBC 0 /HPF (0-2) Urine WBC 0 /HPF (0-4) Urine Squamous Epithelial Cells Few /LPF Urine Bacteria Few /HPF (0-FEW) Urine Opiates Screen Neg (NEG) Urine Methadone Screen Neg (NEG) Urine Barbiturates Neg (NEG) Urine Phencyclidine Screen Neg (NEG) Urine Amphetamine/Methamphetamine Neg (NEG) Urine Benzodiazepines Screen Neg (NEG) Urine Cocaine Screen Neg (NEG) Urine Cannabinoids Screen Neg (NEG) Urine Ethyl Alcohol Neg (NEG) White Blood Count 13.3 x10^3/uL (4.0-11.0) 11.7 x10^3/uL (4.0-11.0) 11.3 x10^3/uL (4.0-11.0) Red Blood Count 4.53 x10^6/uL (3.50-5.40) 4.45 x10^6/uL (3.50-5.40) 4.27 x10^6/uL (3.50-5.40) Hemoglobin 13.9 g/dL (12.0-15.5) 13.6 g/dL (12.0-15.5) 13.4 g/dL (12.0-15.5) Hematocrit 41.4 % (36.0-47.0) 41.1 % (36.0-47.0) 39.5 % (36.0-47.0) Mean Corpuscular Volume 91 fL (79-100) 92 fL (79-100) 93 fL (79-100) Mean Corpuscular Hemoglobin 31 pg (25-35) 30 pg (25-35) 32 pg (25-35) Mean Corpuscular Hemoglobin Concent 34 g/dL (31-37) 33 g/dL (31-37) 34 g/dL (31-37) Red Cell Distribution Width 12.2 % (11.5-14.5) 12.3 % (11.5-14.5) 12.2 % (11.5-14.5) Platelet Count 198 x10^3/uL (140-400) 188 x10^3/uL (140-400) 195 x10^3/uL (140-400) Neutrophils (%) (Auto) 78 % (31-73) 83 % (31-73) 78 % (31-73) Lymphocytes (%) (Auto) 16 % (24-48) 11 % (24-48) 14 % (24-48) Monocytes (%) (Auto) 5 % (0-9) 5 % (0-9) 7 % (0-9) Eosinophils (%) (Auto) 1 % (0-3) 1 % (0-3) 2 % (0-3) Basophils (%) (Auto) 0 % (0-3) 0 % (0-3) 0 % (0-3) Neutrophils # (Auto) 10.3 x10^3uL (1.8-7.7) 9.7 x10^3uL (1.8-7.7) 8.8 x10^3uL (1.8-7.7) Lymphocytes # (Auto) 2.1 x10^3/uL (1.0-4.8) 1.3 x10^3/uL (1.0-4.8) 1.5 x10^3/uL (1.0-4.8) Monocytes # (Auto) 0.7 x10^3/uL (0.0-1.1) 0.6 x10^3/uL (0.0-1.1) 0.7 x10^3/uL (0.0-1.1) Eosinophils # (Auto) 0.2 x10^3/uL (0.0-0.7) 0.1 x10^3/uL (0.0-0.7) 0.2 x10^3/uL (0.0-0.7) Basophils # (Auto) 0.0 x10^3/uL (0.0-0.2) 0.0 x10^3/uL (0.0-0.2) 0.0 x10^3/uL (0.0-0.2) Erythrocyte Sedimentation Rate 30 (0-25) Sodium Level 135 mmol/L (136-145) 139 mmol/L (136-145) Potassium Level 3.4 mmol/L (3.5-5.1) 3.5 mmol/L (3.5-5.1) Chloride Level 99 mmol/L (98-107) 104 mmol/L (98-107) Carbon Dioxide Level 28 mmol/L (21-32) 26 mmol/L (21-32) Anion Gap 8 (6-14) 9 (6-14) Blood Urea Nitrogen 14 mg/dL (7-20) 14 mg/dL (7-20) Creatinine 1.0 mg/dL (0.6-1.0) 1.0 mg/dL (0.6-1.0) Estimated GFR (Cockcroft-Gault) 58.2 58.2 BUN/Creatinine Ratio 14 (6-20) Glucose Level 99 mg/dL (70-99) 102 mg/dL (70-99) Lactic Acid Level 0.6 mmol/L (0.4-2.0) Calcium Level 8.9 mg/dL (8.5-10.1) 8.5 mg/dL (8.5-10.1) Total Bilirubin 1.8 mg/dL (0.2-1.0) Aspartate Amino Transf (AST/SGOT) 15 U/L (15-37) Alanine Aminotransferase (ALT/SGPT) 28 U/L (14-59) Alkaline Phosphatase 74 U/L (46-116) Total Protein 7.5 g/dL (6.4-8.2) Albumin 3.7 g/dL (3.4-5.0) Albumin/Globulin Ratio 1.0 (1.0-1.7) Lipase 82 U/L (73-393) Ethyl Alcohol Level < 10 mg/dL (0-10) Laboratory Tests Test 04/20/19 05:15 White Blood Count 11.3 x10^3/uL (4.0-11.0) Red Blood Count 4.27 x10^6/uL (3.50-5.40) Hemoglobin 13.4 g/dL (12.0-15.5) Hematocrit 39.5 % (36.0-47.0) Mean Corpuscular Volume 93 fL (79-100) Mean Corpuscular Hemoglobin 32 pg (25-35) Mean Corpuscular Hemoglobin Concent 34 g/dL (31-37) Red Cell Distribution Width 12.2 % (11.5-14.5) Platelet Count 195 x10^3/uL (140-400) Neutrophils (%) (Auto) 78 % (31-73) Lymphocytes (%) (Auto) 14 % (24-48) Monocytes (%) (Auto) 7 % (0-9) Eosinophils (%) (Auto) 2 % (0-3) Basophils (%) (Auto) 0 % (0-3) Neutrophils # (Auto) 8.8 x10^3uL (1.8-7.7) Lymphocytes # (Auto) 1.5 x10^3/uL (1.0-4.8) Monocytes # (Auto) 0.7 x10^3/uL (0.0-1.1) Eosinophils # (Auto) 0.2 x10^3/uL (0.0-0.7) Basophils # (Auto) 0.0 x10^3/uL (0.0-0.2) Problem List Problems Medical Problems: (1) Diverticulitis Status: Acute (2) Right lower quadrant pain Status: Acute Assessment/Plan clinically improved continue abx, will advance diet KIRBY ANDRADE MD 04/20/19 9804: SURGICAL PROGRESS NOTE Assessment/Plan pt seen and examined agree with above could go home on PO abx and pain meds from surgery standpoint f/u in office as outpatient BREDNA HAYES APRN April 20, 2019 09:47 KIRBY ANDRADE MD April 20, 2019 13:44
--- NOTE | 2019-04-20 09:52 | NUR ---
SW following for discharge planning. Discussed with RN, pt is from home, ad darrius and could possible discharge after diet is advanced. RN advised no SW needs. SW will continue to follow.
[2019-04-20] MEDS: CIPROFLOXACIN HCL 250 MG TABLET. PO SCH (09:53)
[2019-04-20] MEDS: CETIRIZINE HCL 10 MG TABLET. PO SCH (09:53)
[2019-04-20 11:00] VITALS: BP 132/80
--- NOTE | 2019-04-20 11:42 | PDOC ---
PROGRESS NOTES Chief Complaint Chief Complaint A/P: RLQ abdominal pain - treat as colitis/diverticulitis, less likely appendicitis HTN Hypothyroid Plan: tolerating PO abx pain controlled advancing diet patient would like to go home today if she tolerates diet. 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 Surgery consulted. Feeling better with treatment for diverticulitis, notes she does not have heavy fiber in her diet, does eat a lot of strawberries. Vitals Vitals Vital Signs Date Time Temp Pulse Resp B/P (MAP) Pulse Ox O2 Delivery O2 Flow Rate FiO2 04/20/19 07:35 Room Air 04/20/19 07:00 98.2 68 17 136/78 (97) 97 98.2 Physical Exam General: Alert, Oriented X3, Cooperative, No acute distress Heart: Regular rate Abdomen: Soft Labs LABS Laboratory Tests Test 04/20/19 05:15 White Blood Count 11.3 x10^3/uL (4.0-11.0) Red Blood Count 4.27 x10^6/uL (3.50-5.40) Hemoglobin 13.4 g/dL (12.0-15.5) Hematocrit 39.5 % (36.0-47.0) Mean Corpuscular Volume 93 fL (79-100) Mean Corpuscular Hemoglobin 32 pg (25-35) Mean Corpuscular Hemoglobin Concent 34 g/dL (31-37) Red Cell Distribution Width 12.2 % (11.5-14.5) Platelet Count 195 x10^3/uL (140-400) Neutrophils (%) (Auto) 78 % (31-73) Lymphocytes (%) (Auto) 14 % (24-48) Monocytes (%) (Auto) 7 % (0-9) Eosinophils (%) (Auto) 2 % (0-3) Basophils (%) (Auto) 0 % (0-3) Neutrophils # (Auto) 8.8 x10^3uL (1.8-7.7) Lymphocytes # (Auto) 1.5 x10^3/uL (1.0-4.8) Monocytes # (Auto) 0.7 x10^3/uL (0.0-1.1) Eosinophils # (Auto) 0.2 x10^3/uL (0.0-0.7) Basophils # (Auto) 0.0 x10^3/uL (0.0-0.2) Assessment and Plan Assessmemt and Plan Problems Medical Problems: (1) Diverticulitis Status: Acute (2) Right lower quadrant pain Status: Acute Comment Review of Relevant I have reviewed the following items meli (where applicable) has been applied. Labs Laboratory Tests Test 04/18/19 13:14 04/18/19 13:25 04/19/19 05:30 04/20/19 05:15 Urine Collection Type Unknown Urine Color Yellow Urine Clarity Clear Urine pH 7.0 Urine Specific [place] <=1.005 Urine Protein Negative mg/dL (NEG-TRACE) Urine Glucose (UA) Negative mg/dL (NEG) Urine Ketones (Stick) Negative mg/dL (NEG) Urine Blood Negative (NEG) Urine Nitrite Negative (NEG) Urine Bilirubin Negative (NEG) Urine Urobilinogen Dipstick 0.2 mg/dL (0.2 mg/dL) Urine Leukocyte Esterase Negative (NEG) Urine RBC 0 /HPF (0-2) Urine WBC 0 /HPF (0-4) Urine Squamous Epithelial Cells Few /LPF Urine Bacteria Few /HPF (0-FEW) Urine Opiates Screen Neg (NEG) Urine Methadone Screen Neg (NEG) Urine Barbiturates Neg (NEG) Urine Phencyclidine Screen Neg (NEG) Urine Amphetamine/Methamphetamine Neg (NEG) Urine Benzodiazepines Screen Neg (NEG) Urine Cocaine Screen Neg (NEG) Urine Cannabinoids Screen Neg (NEG) Urine Ethyl Alcohol Neg (NEG) White Blood Count 13.3 x10^3/uL (4.0-11.0) 11.7 x10^3/uL (4.0-11.0) 11.3 x10^3/uL (4.0-11.0) Red Blood Count 4.53 x10^6/uL (3.50-5.40) 4.45 x10^6/uL (3.50-5.40) 4.27 x10^6/uL (3.50-5.40) Hemoglobin 13.9 g/dL (12.0-15.5) 13.6 g/dL (12.0-15.5) 13.4 g/dL (12.0-15.5) Hematocrit 41.4 % (36.0-47.0) 41.1 % (36.0-47.0) 39.5 % (36.0-47.0) Mean Corpuscular Volume 91 fL (79-100) 92 fL (79-100) 93 fL (79-100) Mean Corpuscular Hemoglobin 31 pg (25-35) 30 pg (25-35) 32 pg (25-35) Mean Corpuscular Hemoglobin Concent 34 g/dL (31-37) 33 g/dL (31-37) 34 g/dL (31-37) Red Cell Distribution Width 12.2 % (11.5-14.5) 12.3 % (11.5-14.5) 12.2 % (11.5-14.5) Platelet Count 198 x10^3/uL (140-400) 188 x10^3/uL (140-400) 195 x10^3/uL (140-400) Neutrophils (%) (Auto) 78 % (31-73) 83 % (31-73) 78 % (31-73) Lymphocytes (%) (Auto) 16 % (24-48) 11 % (24-48) 14 % (24-48) Monocytes (%) (Auto) 5 % (0-9) 5 % (0-9) 7 % (0-9) Eosinophils (%) (Auto) 1 % (0-3) 1 % (0-3) 2 % (0-3) Basophils (%) (Auto) 0 % (0-3) 0 % (0-3) 0 % (0-3) Neutrophils # (Auto) 10.3 x10^3uL (1.8-7.7) 9.7 x10^3uL (1.8-7.7) 8.8 x10^3uL (1.8-7.7) Lymphocytes # (Auto) 2.1 x10^3/uL (1.0-4.8) 1.3 x10^3/uL (1.0-4.8) 1.5 x10^3/uL (1.0-4.8) Monocytes # (Auto) 0.7 x10^3/uL (0.0-1.1) 0.6 x10^3/uL (0.0-1.1) 0.7 x10^3/uL (0.0-1.1) Eosinophils # (Auto) 0.2 x10^3/uL (0.0-0.7) 0.1 x10^3/uL (0.0-0.7) 0.2 x10^3/uL (0.0-0.7) Basophils # (Auto) 0.0 x10^3/uL (0.0-0.2) 0.0 x10^3/uL (0.0-0.2) 0.0 x10^3/uL (0.0-0.2) Erythrocyte Sedimentation Rate 30 (0-25) Sodium Level 135 mmol/L (136-145) 139 mmol/L (136-145) Potassium Level 3.4 mmol/L (3.5-5.1) 3.5 mmol/L (3.5-5.1) Chloride Level 99 mmol/L (98-107) 104 mmol/L (98-107) Carbon Dioxide Level 28 mmol/L (21-32) 26 mmol/L (21-32) Anion Gap 8 (6-14) 9 (6-14) Blood Urea Nitrogen 14 mg/dL (7-20) 14 mg/dL (7-20) Creatinine 1.0 mg/dL (0.6-1.0) 1.0 mg/dL (0.6-1.0) Estimated GFR (Cockcroft-Gault) 58.2 58.2 BUN/Creatinine Ratio 14 (6-20) Glucose Level 99 mg/dL (70-99) 102 mg/dL (70-99) Lactic Acid Level 0.6 mmol/L (0.4-2.0) Calcium Level 8.9 mg/dL (8.5-10.1) 8.5 mg/dL (8.5-10.1) Total Bilirubin 1.8 mg/dL (0.2-1.0) Aspartate Amino Transf (AST/SGOT) 15 U/L (15-37) Alanine Aminotransferase (ALT/SGPT) 28 U/L (14-59) Alkaline Phosphatase 74 U/L (46-116) Total Protein 7.5 g/dL (6.4-8.2) Albumin 3.7 g/dL (3.4-5.0) Albumin/Globulin Ratio 1.0 (1.0-1.7) Lipase 82 U/L (73-393) Ethyl Alcohol Level < 10 mg/dL (0-10) Laboratory Tests Test 04/20/19 05:15 White Blood Count 11.3 x10^3/uL (4.0-11.0) Red Blood Count 4.27 x10^6/uL (3.50-5.40) Hemoglobin 13.4 g/dL (12.0-15.5) Hematocrit 39.5 % (36.0-47.0) Mean Corpuscular Volume 93 fL (79-100) Mean Corpuscular Hemoglobin 32 pg (25-35) Mean Corpuscular Hemoglobin Concent 34 g/dL (31-37) Red Cell Distribution Width 12.2 % (11.5-14.5) Platelet Count 195 x10^3/uL (140-400) Neutrophils (%) (Auto) 78 % (31-73) Lymphocytes (%) (Auto) 14 % (24-48) Monocytes (%) (Auto) 7 % (0-9) Eosinophils (%) (Auto) 2 % (0-3) Basophils (%) (Auto) 0 % (0-3) Neutrophils # (Auto) 8.8 x10^3uL (1.8-7.7) Lymphocytes # (Auto) 1.5 x10^3/uL (1.0-4.8) Monocytes # (Auto) 0.7 x10^3/uL (0.0-1.1) Eosinophils # (Auto) 0.2 x10^3/uL (0.0-0.7) Basophils # (Auto) 0.0 x10^3/uL (0.0-0.2) Medications Current Medications Sodium Chloride 1,000 ml @ 1,000 mls/hr 1X ONCE IV Last administered on 04/18/19at 13:43; Start 04/18/19 at 13:00; Stop 04/18/19 at 13:59; Status DC Morphine Sulfate (Morphine Sulfate) 5 mg 1X ONCE IV Last administered on 04/18/19at 13:45; Start 04/18/19 at 13:00; Stop 04/18/19 at 13:06; Status DC Ondansetron HCl (Zofran) 4 mg 1X ONCE IV Last administered on 04/18/19 13:46; Start 04/18/19 at 13:00; Stop 04/18/19 at 13:06; Status DC Iohexol (Omnipaque 350 Mg/ml) 60 ml 1X ONCE IV Last administered on 04/18/19 14:13; Start 04/18/19 at 14:00; Stop 04/18/19 at 14:01; Status DC Info (CONTRAST GIVEN -- Rx MONITORING) 1 each PRN DAILY PRN MC SEE COMMENTS; Start 04/18/19 at 14:00; Stop 04/20/19 at 13:59 Ondansetron HCl (Zofran) 4 mg PRN Q8HRS PRN IV NAUSEA/VOMITING Last administered on 04/19/19 10:13; Start 04/18/19 at 16:30; Stop 04/19/19 at 16:29; Status DC Morphine Sulfate (Morphine Sulfate) 4 mg PRN Q2HR PRN IV PAIN Last administered on 04/19/19 10:13; Start 04/18/19 at 16:30; Stop 04/19/19 at 16:29; Status DC Sodium Chloride 1,000 ml @ 125 mls/hr 1X ONCE IV Last administered on 04/18/19 17:25; Start 04/18/19 at 16:30; Stop 04/19/19 at 00:29; Status DC Ciprofloxacin/ Dextrose 200 ml @ 200 mls/hr 1X ONCE IV Last administered on 04/18/19 18:10; Start 04/18/19 at 16:30; Stop 04/18/19 at 17:29; Status DC Metronidazole 100 ml @ 100 mls/hr Q8HRS IV Last administered on 04/19/19 22:19; Start 04/18/19 at 22:00; Stop 04/19/19 at 23:00; Status DC Metronidazole 100 ml @ 100 mls/hr ONCE ONCE IV Last administered on 04/18/19 17:24; Start 04/18/19 at 16:30; Stop 04/18/19 at 17:29; Status DC Potassium Chloride (Klor-Con) 40 meq 1X ONCE PO ; Start 04/18/19 at 16:30; Stop 04/18/19 at 16:31; Status DC Potassium Chloride (Klor-Con) 20 meq 1X ONCE PO ; Start 04/18/19 at 16:30; Stop 04/18/19 at 16:31; Status UNV Enoxaparin Sodium (Lovenox 40mg Syringe) 40 mg QHS SQ Last administered on 04/19/19at 21:00; Start 04/18/19 at 21:00 Pantoprazole Sodium (Protonix) 40 mg DAILYAC PO ; Start 04/18/19 at 16:30; Stop 04/19/19 at 07:17; Status DC Sodium Chloride 1,000 ml @ 125 mls/hr 1X ONCE IV Last administered on 04/18/19at 19:00; Start 04/18/19 at 16:30; Stop 04/19/19 at 00:29; Status DC Pantoprazole Sodium (PROTONIX VIAL for IV PUSH) 40 mg DAILYAC IVP ; Start 04/19/19 at 07:30; Status UNV Famotidine (Pepcid Vial) 20 mg BID IVP Last administered on 04/19/19at 20:55; Start 04/19/19 at 09:00; Stop 04/20/19 at 07:17; Status DC Ciprofloxacin (Cipro) 500 mg BID PO Last administered on 04/20/19at 09:53; Start 04/19/19 at 21:00 Metronidazole (Flagyl) 500 mg Q12HR PO Last administered on 04/20/19at 09:53; Start 04/20/19 at 09:00 Atorvastatin Calcium (Lipitor) 20 mg QHS PO Last administered on 04/19/19at 20:53; Start 04/19/19 at 21:00 Fluticasone Propionate (Flonase) 2 spray DAILY NS ; Start 04/20/19 at 09:00 Levothyroxine Sodium (Synthroid) 100 mcg DAILY PO ; Start 04/20/19 at 09:00; Stop 04/20/19 at 09:00; Status DC Fluticasone Propionate (Flonase) 2 spray DAILY NS ; Start 04/20/19 at 09:00; Status Cancel Budesonide (Pulmicort) 0.5 mg RTBID NEB Last administered on 04/19/19at 19:36; Start 04/19/19 at 20:00 Hydrochlorothiazide (Microzide) 12.5 mg DAILY PO Last administered on 04/20/19 09:54; Start 04/20/19 at 09:00 Multivitamins (Thera M Plus) 1 tab DAILY PO Last administered on 04/20/19 09:54; Start 04/20/19 at 09:00 Pantoprazole Sodium (Protonix) 40 mg DAILYAC PO Last administered on 04/20/19at 07:21; Start 04/20/19 at 07:30 Cetirizine HCl (ZyrTEC) 10 mg DAILY PO Last administered on 04/20/19at 09:53; Start 04/19/19 at 16:00 Albuterol Sulfate (Ventolin Neb Soln) 2.5 mg RTQID NEB Last administered on 04/19/19at 19:36; Start 04/19/19 at 20:00 Levothyroxine Sodium (Synthroid) 100 mcg DAILY07 PO Last administered on 04/20/19at 07:22; Start 04/20/19 at 07:20 Active Scripts Active Reported Cetirizine Hcl 10 Mg Tablet 1 Tab PO DAILY Lipitor (Atorvastatin Calcium) 20 Mg Tablet 1 Tab PO DAILY Multivitamins (Multivitamin) 1 Each Tablet 1 Tab PO DAILY Prilosec Otc (Omeprazole Magnesium) 20 Mg Tablet.dr 1 Tab PO DAILY Symbicort 160-4.5 Mcg Inhaler (Budesonide/Formoterol Fumarate) 10.2 Gm Hfa.aer.ad 2 Puff IH BID Dymista Nasal [place] (Azelastine/Fluticasone) 23 Gm [place].pump 1 [place] NS DAILY Fluticasone Propionate Nasal [place] (Fluticasone Propionate) 16 Gm [place].susp 2 [place] NS DAILY Elestrin (Estradiol) 26 Gm Gel.md.insurance processing clerk 26 Gm TD DAILY Hydrochlorothiazide Tablet (Hydrochlorothiazide) 12.5 Mg Tablet 12.5 Mg PO DAILY Synthroid (Levothyroxine Sodium) 100 Mcg Tablet 1 Tab PO DAILY Vitals/I & O Vital Sign - Last 24 Hours 04/19/19 04/19/19 04/19/19 04/19/19 15:00 19:34 19:42 19:43 Temp 98.8 98.1 98.8 98.1 Pulse 79 87 Resp 18 16 B/P (MAP) 139/76 (97) 152/89 (110) Pulse Ox 98 98 99 99 O2 Delivery Room Air Room Air Room Air Room Air 04/19/19 04/20/19 04/20/19 04/20/19 23:10 03:39 07:00 07:35 Temp 98.5 98.0 98.2 98.5 98.0 98.2 Pulse 82 78 68 Resp 16 16 17 B/P (MAP) 126/71 (89) 131/69 (89) 136/78 (97) Pulse Ox 98 95 97 O2 Delivery Room Air Room Air Room Air Room Air Intake and Output 04/19/19 04/19/19 04/20/19 14:59 22:59 06:59 Intake Total 240 ml 680 ml Output Total 200 ml 300 ml Balance -200 ml -60 ml 680 ml ALINA WAYNE MD April 20, 2019 11:42
--- NOTE | 2019-04-20 14:03 | PDOC ---
Subjective: Subjective: Now tolerating full liquids and stooling, significantly less pain. On PO atbx. Asking if she could go home today. Objective: Vital Signs: Vital Signs Date Time Temp Pulse Resp B/P (MAP) Pulse Ox O2 Delivery O2 Flow Rate FiO2 04/20/19 11:00 98.0 65 17 132/80 (97) 99 Room Air 98.0 Labs: Laboratory Tests Test 04/20/19 05:15 White Blood Count 11.3 x10^3/uL Red Blood Count 4.27 x10^6/uL Hemoglobin 13.4 g/dL Hematocrit 39.5 % Mean Corpuscular Volume 93 fL Mean Corpuscular Hemoglobin 32 pg Mean Corpuscular Hemoglobin Concent 34 g/dL Red Cell Distribution Width 12.2 % Platelet Count 195 x10^3/uL Neutrophils (%) (Auto) 78 % Lymphocytes (%) (Auto) 14 % Monocytes (%) (Auto) 7 % Eosinophils (%) (Auto) 2 % Basophils (%) (Auto) 0 % Neutrophils # (Auto) 8.8 x10^3uL Lymphocytes # (Auto) 1.5 x10^3/uL Monocytes # (Auto) 0.7 x10^3/uL Eosinophils # (Auto) 0.2 x10^3/uL Basophils # (Auto) 0.0 x10^3/uL PE: GEN: NAD LUNGS: CTAB HEART: RRR ABD: NABS, S/ND/NT NEURO/PSYCH: A & O 3 A/P: Diverticulitis CRC screen, FH CRC, h/o adenomatous polyp - UTD Chronic heartburn -- Improving, ?JOSE JUAN Mojica April 20, 2019 14:03
[2019-04-20] MEDS ORDERED: CIPR250T30 PO (14:49)
[2019-04-20] MEDS ORDERED: METR500T PO (14:50)
[2019-04-20] MEDS ORDERED: TRAM50TA PO (14:50)
--- NOTE | 2019-04-20 14:54 | PDOC3 ---
Discharge Summary Visit Information Date of Admission: April 18, 2019 Date of Discharge: April 20, 2019 Final Diagnosis Problems Medical Problems: (1) Diverticulitis Status: Acute (2) Right lower quadrant pain Status: Acute Brief Hospital Course Allergies Allergies Coded Allergies Type Severity Reaction Last Updated Verified Sulfa (Sulfonamide Antibiotics) Allergy Intermediate hives 07/25/14 Yes Vital Signs Vital Signs Date Time Temp Pulse Resp B/P (MAP) Pulse Ox O2 Delivery O2 Flow Rate FiO2 04/20/19 11:00 98.0 65 17 132/80 (97) 99 Room Air 98.0 Lab Results Laboratory Tests Test 04/19/19 05:30 04/20/19 05:15 White Blood Count 11.7 x10^3/uL (4.0-11.0) 11.3 x10^3/uL (4.0-11.0) Red Blood Count 4.45 x10^6/uL (3.50-5.40) 4.27 x10^6/uL (3.50-5.40) Hemoglobin 13.6 g/dL (12.0-15.5) 13.4 g/dL (12.0-15.5) Hematocrit 41.1 % (36.0-47.0) 39.5 % (36.0-47.0) Mean Corpuscular Volume 92 fL (79-100) 93 fL (79-100) Mean Corpuscular Hemoglobin 30 pg (25-35) 32 pg (25-35) Mean Corpuscular Hemoglobin Concent 33 g/dL (31-37) 34 g/dL (31-37) Red Cell Distribution Width 12.3 % (11.5-14.5) 12.2 % (11.5-14.5) Platelet Count 188 x10^3/uL (140-400) 195 x10^3/uL (140-400) Neutrophils (%) (Auto) 83 % (31-73) 78 % (31-73) Lymphocytes (%) (Auto) 11 % (24-48) 14 % (24-48) Monocytes (%) (Auto) 5 % (0-9) 7 % (0-9) Eosinophils (%) (Auto) 1 % (0-3) 2 % (0-3) Basophils (%) (Auto) 0 % (0-3) 0 % (0-3) Neutrophils # (Auto) 9.7 x10^3uL (1.8-7.7) 8.8 x10^3uL (1.8-7.7) Lymphocytes # (Auto) 1.3 x10^3/uL (1.0-4.8) 1.5 x10^3/uL (1.0-4.8) Monocytes # (Auto) 0.6 x10^3/uL (0.0-1.1) 0.7 x10^3/uL (0.0-1.1) Eosinophils # (Auto) 0.1 x10^3/uL (0.0-0.7) 0.2 x10^3/uL (0.0-0.7) Basophils # (Auto) 0.0 x10^3/uL (0.0-0.2) 0.0 x10^3/uL (0.0-0.2) Sodium Level 139 mmol/L (136-145) Potassium Level 3.5 mmol/L (3.5-5.1) Chloride Level 104 mmol/L (98-107) Carbon Dioxide Level 26 mmol/L (21-32) Anion Gap 9 (6-14) Blood Urea Nitrogen 14 mg/dL (7-20) Creatinine 1.0 mg/dL (0.6-1.0) Estimated GFR (Cockcroft-Gault) 58.2 Glucose Level 102 mg/dL (70-99) Calcium Level 8.5 mg/dL (8.5-10.1) Laboratory Tests Test 04/20/19 05:15 White Blood Count 11.3 x10^3/uL (4.0-11.0) Red Blood Count 4.27 x10^6/uL (3.50-5.40) Hemoglobin 13.4 g/dL (12.0-15.5) Hematocrit 39.5 % (36.0-47.0) Mean Corpuscular Volume 93 fL (79-100) Mean Corpuscular Hemoglobin 32 pg (25-35) Mean Corpuscular Hemoglobin Concent 34 g/dL (31-37) Red Cell Distribution Width 12.2 % (11.5-14.5) Platelet Count 195 x10^3/uL (140-400) Neutrophils (%) (Auto) 78 % (31-73) Lymphocytes (%) (Auto) 14 % (24-48) Monocytes (%) (Auto) 7 % (0-9) Eosinophils (%) (Auto) 2 % (0-3) Basophils (%) (Auto) 0 % (0-3) Neutrophils # (Auto) 8.8 x10^3uL (1.8-7.7) Lymphocytes # (Auto) 1.5 x10^3/uL (1.0-4.8) Monocytes # (Auto) 0.7 x10^3/uL (0.0-1.1) Eosinophils # (Auto) 0.2 x10^3/uL (0.0-0.7) Basophils # (Auto) 0.0 x10^3/uL (0.0-0.2) Brief Hospital Course 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 concern for colitis/diverticulitis, less likely appendcitits. gen sx and GI consulted. placed on IV cipro and flagyl. diet advanced slowly and pain well tolerated. she will be discharged on FLD. patient had recent colo which is reassuring. she will be discharged today with close follow up in 2 weeks. patient requests to be discharged today. Discharge Information Condition at Discharge: Stable Follow Up: Weeks Disposition/Orders: D/C to Home Scheduled Atorvastatin Calcium (Lipitor) 20 Mg Tablet, 1 TAB PO DAILY for high cholesterol, #90 Ref 1 (Reported) Entered as Reported by: JAMIA RIVAS on 04/18/191909 Last Action: Continued on 04/19/191545 by RADHA MONTANO Azelastine/Fluticasone (Dymista Nasal Minto) 23 Gm Minto.pump, 1 SPRAY NS DAILY for nasal, #23 Ref 6 (Reported) Entered as Reported by: JAMIA RIVAS on 04/18/191909 Last Action: Converted on 04/19/191545 by RADHA MONTANO Budesonide/Formoterol Fumarate (Symbicort 160-4.5 Mcg Inhaler) 10.2 Gm Hfa.aer.ad, 2 PUFF IH BID for asthma, #10.6 Ref 3 (Reported) Entered as Reported by: JAMIA RIVAS on 04/18/191909 Last Action: Converted on 04/19/191545 by RADHA MONTANO Cetirizine Hcl (Cetirizine Hcl) 10 Mg Tablet, 1 TAB PO DAILY for allergies, #30 Ref 5 (Reported) Entered as Reported by: RADHA MONTANO on 04/19/191545 Last Action: Continued on 04/19/191545 by RADHA MONTANO Ciprofloxacin Hcl (Cipro) 250 Mg Tablet, 500 MG PO BID for diverticulitis for 10 Days, #40 Prescribed by: ALINA WAYNE MD on 04/20/19 1449 Estradiol (Elestrin) 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, 26 GM TD DAILY for vaginal, (Reported) Entered as Reported by: JAMIA RIVAS on 04/18/191909 Last Action: New Order on 04/18/191909 by JAMIA RIVAS Fluticasone Propionate (Fluticasone Propionate Nasal Minto) 16 Gm Minto.susp, 2 SPRAY NS DAILY for allergies, #1 Ref 11 (Reported) Entered as Reported by: JAMIA RIVAS on 04/18/191909 Last Action: Continued on 04/19/191545 by RADHA MONTANO Hydrochlorothiazide (Hydrochlorothiazide Tablet) 12.5 Mg Tablet, 12.5 MG PO DAILY for DIURETIC, Ref 0 (Reported) Entered as Reported by: JAMIA RIVAS on 04/18/191909 Last Action: Converted on 04/19/191545 by RADHA MONTANO Levothyroxine Sodium (Synthroid) 100 Mcg Tablet, 1 TAB PO DAILY for hypothyroid, #30 Ref 5 (Reported) Entered as Reported by: JAMIA RIVAS on 04/18/191909 Last Action: Continued on 04/19/191545 by RADHA MONTANO Metronidazole (Flagyl) 500 Mg Tablet, 500 MG PO Q12HR for diverticulitis for 10 Days, #20 Prescribed by: ALINA WAYNE MD on 04/20/19 1450 Multivitamin (Multivitamins) 1 Each Tablet, 1 TAB PO DAILY for supplement, #90 Ref 3 (Reported) Entered as Reported by: JAMIA RIVAS on 04/18/191909 Last Action: Converted on 04/19/191545 by RADHA MONTANO Omeprazole Magnesium (Prilosec Otc) 20 Mg Tablet.dr, 1 TAB PO DAILY for gerd, #30 Ref 3 (Reported) Entered as Reported by: JAIMA RIVAS on 04/18/191909 Last Action: Converted on 04/19/191545 by RADHA MONTANO Tramadol Hcl (Tramadol Hcl) 50 Mg Tablet, 50 MG PO BID for pain for 10 Days, #20 Ref 0 Prescribed by: ALINA WAYNE MD on 04/20/19 1450 ALINA WAYNE MD April 20, 2019 14:53
[2019-04-20 15:00] VITALS: BP 135/78
--- NOTE | 2019-04-20 16:20 | NUR ---
Pt discharged home with no additional services. Ambulated to hospital entrance accompanied by spouse. Discharge education and information regarding Dx provided to Pt who verbalized understanding and had no further questions. No changes from previous assessment, Pt tolerating FLD.
[2019-04-20] MEDS ORDERED: LACTOBACILLUS RHAMNOSUS GG 1 CAPSULE. PO SCH (21:00)
== END 2019-04-20 16:20 | disposition home or self-care (01) | DRG 392 ==
LOC: ER 12:48 → 4 NORTH 16:07
PROVIDERS: ADMIT Family Medicine; ATTEND Family Medicine
DX: K57.32 Diverticulitis of large intestine without perforation or abscess without bleeding (principal); E03.9 Hypothyroidism, unspecified; E66.01 Morbid (severe) obesity due to excess calories; I10 Essential (primary) hypertension; E78.5 Hyperlipidemia, unspecified; J45.909 Unspecified asthma, uncomplicated; Z82.49 Family history of ischemic heart disease and other diseases of the circulatory system; Z90.710 Acquired absence of both cervix and uterus; Z83.3 Family history of diabetes mellitus; Z68.37 Body mass index [BMI] 37.0-37.9, adult; Z79.899 Other long term (current) drug therapy; Z88.2 Allergy status to sulfonamides
CPT/HCPCS: 36415; 74177; 80048; 80053; 80307; 81001; 83605; 83690; 85025; 85651; 94640; 96374; G0480; J0744; J1650; J2270; J2405; J3490; J7030; J7613; J7626; Q9967; 99285-25

== ENCOUNTER → 2019-06-26 | Outpatient (CLI) | payer BC ==
[~2019-06-26] MED LIST: ATOR20TA PO; AZEL23SP NS; BUDE10.2 IH; CETI10TA16 PO; CIPR250T30 PO; ESTR26GE TD; FLUT16SP NS; HYDR12.58 PO; LEVO100T PO; METR500T PO; MULT1TAB52 PO; OMEP20TA63 PO; TRAM50TA PO
--- NOTE | 2019-06-26 12:39 | KCIC ---
Bilateral digital screening mammograms with 3-D tomosynthesis: Reason for examination: Routine screening. Comparison is made to previous studies dated 08/16/2016 and 08/11/2015. Bilateral mammograms in CC and oblique projections were obtained with 2-D imaging and 3-D tomosynthesis imaging on a Siemens Inspiration unit and reviewed on the workstation. Interpretation was made with the benefit of CAD. The skin and nipples show no abnormalities. No abnormal axillary lymph nodes are seen. The breast parenchyma is heterogeneously dense. (Breast density: Category C.) There appear to be small nodules present centrally in the 6:00 C position of the left breast and centrally in the 9:00 B position of the left breast which are fairly well-circumscribed and may represent small cysts. Recommend further evaluation with ultrasound. There are no other new dominant masses, suspicious calcifications or architectural distortion. Impression: Small circumscribed nodules in the central 6:00 C and central 9:00 B positions of the left breast measuring approximately 7 mm and 8 mm in size respectively. Recommend further evaluation with ultrasound. Your patient's mammogram demonstrates that she has dense breast tissue (breast density category C or D), which could hide abnormalities, and if she has other risk factors for breast cancer that have been identified, she might benefit from supplemental screening tests that may be suggested by you as her ordering physician. Dense breast tissue, in and of itself, is a relatively common condition. Therefore, this information is not provided to cause undue concern, but rather to raise your awareness and to promote discussion with your patient regarding the presence of other risk factors, in addition to dense breast tissue. Your patient's mammography results will be sent to her. BI-RAD Category 0: Incomplete. Needs additional imaging evaluation. "Our facility is accredited by the [employer] Mammography Program." This patient's information has been entered into a reminder system for the patient to be notified with the results of her examination and a target date for the next mammogram. Electronically signed by: Rosalia Austin MD (06/26/2019 12:36 PM) [id number]
== END | disposition home or self-care (01) ==
LOC: KCIC MAMMO 08:32
PROVIDERS: ATTEND Obstetrics & Gynecology
DX: Z12.31 Encounter for screening mammogram for malignant neoplasm of breast (principal); N63.24 Unspecified lump in the left breast, lower inner quadrant
CPT/HCPCS: 77063; 77067

== ENCOUNTER → 2019-07-16 | Outpatient (CLI) | payer BC ==
--- NOTE | 2019-07-16 09:44 | KCIC ---
Left breast ultrasound: Reason for examination: Nodular densities on screening mammogram. Comparison is made to mammographic exam dated 06/26/2019. Left whole breast ultrasound including evaluation of all 4 quadrants and the retroareolar and axillary regions of the left breast was performed. In the 4:00 position 6 cm from the nipple, there is a 6.5 mm fibrocystic lesion. In the 9:00 position 3 cm from the nipple, there is a small 3.3 mm hypoechoic fibrocystic type lesion. In the 10:00 position 4 cm from the nipple, there is a 8.4 mm hypoechoic circumscribed lesion with may represent a complicated cyst. No suspicious-appearing nodules are seen. No abnormal appearing lymph nodes are seen in the left axilla. IMPRESSION: Small subcentimeter benign-appearing cystic and fibrocystic type lesions present in the left breast. No suspicious lesion is seen. Recommend 6 month follow-up with mammograms and ultrasound of the left breast. BI-RADS Category 3: Probably Benign. "Our facility is accredited by the [employer] Mammography [employer]." This patient's information has been entered into a reminder system for the patient to be notified with the results of her examination and a target date for the next mammogram. Electronically signed by: Rosalia Austin MD (07/16/2019 9:41 AM) [id number]
== END | disposition home or self-care (01) ==
LOC: KCIC US 07:55
PROVIDERS: ATTEND Obstetrics & Gynecology
DX: N64.89 Other specified disorders of breast (principal)
CPT/HCPCS: 76641

== ENCOUNTER → 2021-03-07 | Outpatient (CLI) | payer BC ==
[~2021-03-07] MED LIST changes: +LEVO-101 PO; -LEVO100T PO; +MULT-445 PO; -MULT1TAB52 PO
--- NOTE | 2021-03-07 11:42 | KCIC ---
Bilateral diagnostic digital mammograms with 3-D tomosynthesis: Reason for examination: Follow-up left breast nodules. Comparison is made to previous study dated 06/26/2019. Bilateral mammograms in CC and oblique projections were obtained with 2-D imaging and 3-D tomosynthes is imaging on a Siemens Inspiration unit and reviewed on the workstation. Interpretation was made wit h the benefit of CAD. The skin and nipples show no abnormalities. No abnormal axillary lymph nodes are seen. The breast par enchyma is heterogeneously dense. (Breast density: Category C.) There continue to be nodules in the 6 :00 C and 9:00 B positions as well as possible nodule in the 6:00 B position of the left breast. Ultr asound to follow. There are no suspicious calcifications seen. Impression: Continued presence of left breast nodules. Ultrasound to follow. Your patient's mammogram demonstrates that she has dense breast tissue (breast density category C or D), which could hide abnormalities, and if she has other risk factors for breast cancer that have bee n identified, she might benefit from supplemental screening tests that may be suggested by you as her ordering physician. Dense breast tissue, in and of itself, is a relatively common condition. Therefo re, this information is not provided to cause undue concern, but rather to raise your awareness and t o promote discussion with your patient regarding the presence of other risk factors, in addition to d ense breast tissue. Your patient's mammography results will be sent to her. BI-RAD Category 0: Incomplete. Needs additional imaging evaluation. Left breast ultrasound: Comparison is made to previous study dated 07/16/2019. Left whole breast ultrasound including evaluation of all 4 quadrants and the retroareolar and axillar y regions of the left breast was performed. At the 4:00 position 6 cm from the nipple, there continues to be a small 4.2 mm hypoechoic fibrocysti c lesion which is smaller than on previous exam. At the 6:00 position 3 cm from the nipple, there is a 5 mm hypoechoic fibrocystic lesion with no vascularity. At the 6:00 position 4 cm from the nipple a nd deeper in the tissue, there is a 5.9 mm hypoechoic lesion which has a benign fibrocystic appearanc e. At the 9:00 position 3 cm from the nipple, there continues to be an 8.6 mm fibrocystic lesion whic h is stable. At the 10:00 position 4 cm from the nipple, there is a 6.7 mm hypoechoic circumscribed l esion which may represent a complicated cyst. No grossly suspicious lesions are seen. No abnormal micaela earing lymph nodes are seen in the axilla. IMPRESSION: Small nodules in the left breast which have benign cystic and fibrocystic appearances. Reevaluation a nd 6 month follow-up with ultrasound is recommended. BI-RADS Category 3: Probably Benign. "Our facility is accredited by the [employer] Mammography Program." This patient's information has been entered into a reminder system for the patient to be notified wit the results of her examination and a target date for the next mammogram. Electronically signed by: Rosalia Austin MD (03/07/2021 11:40 AM) [email or web address]
== END ==
LOC: KCIC MAMMO 08:14
PROVIDERS: ATTEND Family Medicine
DX: N63.24 Unspecified lump in the left breast, lower inner quadrant (principal); N63.22 Unspecified lump in the left breast, upper inner quadrant
CPT/HCPCS: 76641; 77066; G0279; 77062